=== PATIENT | female | born 1985 | race Caucasian/White ===

== ENCOUNTER 2019-09-18 14:57 | Inpatient (IN) | payer OTHER ==
[~2019-09-18] VITALS: Ht 167.6 cm; Wt 89.7 kg
[~2019-09-18 14:57] MED LIST: ALBU90OI INH; AMOX500 PO; AZIT250 PO; CEPH500 PO; CIPR500 PO; CLIN300 PO; CODACE30 PO; CRUTCH3 USE; CYCL10 PO; DIPH50 PO; FLUO10 PO; HYDACE5 PO; HYDACE5325 PO; HYDHCL25 PO; IBUP600 PO; IBUP800 PO; METERG.2 PO; METO10 PO; METPRE4DP PO; NAPR500 PO; Norco 5-325 Ta1 EACH PO; OXYACE5T PO; PENVK250 PO; PENVK500 PO; PHENA200 PO; PRED10 PO; PROACE100 PO; PROM25 PO; Percocet 5-3251 EACH PO; Prenatal Table1 EAC1 PO; Pyridium100 MG PO; Pyridium200 MG PO; RXHYDACE PO; RXOXYACE PO; SULTRIDS PO; Ultram50 MG PO; Veetids 500500 MG PO; Zofran Odt4 MG SL; [UNRECOGNIZED DRUG - OTHER]; [UNRECOGNIZED DRUG - REMARK]; birth control
[2019-09-18 16:00] LABS: BASOPHILS ABSOLUTE AUTO 0.04 K/mm3 (0.00-0.23); BASOPHILS PERCENT AUTO 1 % (0-2); EOSINOPHILS ABSOLUTE AUTO 0.13 K/mm3 (0.00-0.68); EOSINOPHILS PERCENT AUTO 2 % (0-6); Hematocrit 46.6 % (33.0-51.0); Hemoglobin 15.5 g/dL (11.5-16.0); IMMATURE GRAN ABSOLUTE AUTO 0.03 K/mm3 (0.00-0.10); IMMATURE GRAN PERCENT AUTO 0 % (0-1); LYMPHOCYTES ABSOLUTE AUTO 1.71 K/mm3 (0.84-5.20); LYMPHOCYTES PERCENT AUTO 24 % (21-46); MONOCYTES ABSOLUTE AUTO 0.57 K/mm3 (0.16-1.47); MONOCYTES PERCENT AUTO 8 % (4-13); Mean Corpuscular HGB 32.4 pg (26.0-34.0); Mean Corpuscular HGB Conc 33.3 g/dL (31.5-36.5); Mean Corpuscular Volume 97 fL (80-100); Mean Platelet Volume 8.7 fL (9.1-12.4); NEUTROPHILS ABSOLUTE AUTO 4.61 K/mm3 (1.96-9.15); NEUTROPHILS PERCENT AUTO 65 % (41-73); Platelet Count 178 K/mm3 (150-400); RDW Coefficient Variation 13.9 % (11.7-14.2); RDW Standard Deviation 49.4 fL (35.1-46.3); Red Blood Cell Count 4.79 M/mm3 (3.80-5.20); White Blood Cell Count 7.09 K/mm3 (4.00-11.30)
[2019-09-18 16:22] LABS: Alanine Aminotransfer (ALT/SGP 79 U/L (12-78); Albumin, Blood 3.7 g/dL (3.4-5.0); Albumin/Globulin Ratio 0.8 (0.8-1.8); Alk Phos 156 U/L (50-136); Anion Gap 8 mmol/L (6-16); Aspartate Aminotrans (AST/SGOT 125 U/L (12-37); Bilirubin, Total 0.9 mg/dL (0.1-1.0); Blood Urea Nitrogen 4 mg/dL (8-24); Bun/Creatinine Ratio 6.5 (12.0-20.0); CO2, Blood 26 mmol/L (21-32); Chloride, Blood 99 mmol/L (98-108); Creatinine, Blood 0.62 mg/dL (0.40-1.00); Ethanol (Alcohol), Blood, Med 11 mg/dL; Globulin, Blood 4.7 g/dL (2.2-4.0); Glomerular Filtration Rate >60 (60-); Glucose, Blood 107 mg/dL (70-99); Potassium, Blood 3.6 mmol/L (3.5-5.5); Sodium, Blood 133 mmol/L (136-145); Total Protein, Blood 8.4 g/dL (6.4-8.2)
[2019-09-18 16:28] LABS: Source, Urine Clean Catch
[2019-09-18 16:34] LABS: Bilirubin, Urine Neg (Neg); Blood, Urine 1+ (Neg); Glucose Qualitative, Urine Neg (Neg); Ketones, Urine 4+ (Neg); Leukocyte Esterase, Urine 2+ (Neg); Nitrite, Urine Pos (Neg); Protein, Urine 1+ (Neg); Urobilinogen, Urine 1+ (Normal)
[2019-09-18 16:40] LABS: Appearance, Urine Hazy (Clear); Color, Urine Yellow (P-Yellow)
[2019-09-18 16:43] LABS: Bacteria Many /hpf; Mucus Mod (0-Heavy); Red Blood Cells, Urine 0-2 /hpf (0-2); Squamous Epithelial Cells Many /hpf (Few)
[2019-09-18 16:46] LABS: U Amphetamine Screen Not Detected; U Barbituate Screen Not Detected; U Benzodiazapine Screen DETECTED; U Buprenorphine Screen Not Detected; U Cannabinoids Screen Not Detected; U Cocaine Screen Not Detected; U Methadone Screen Not Detected; U Methamphetamine Screen Not Detected; U Opiates Screen DETECTED; U Oxycodone Screen Not Detected; U Phencyclidine Screen Not Detected; U Propoxyphene Screen Not Detected
--- NOTE | 2019-09-18 21:14 | NUR ---
PHYSICIAN CONTACT. CALL PLACED TO HOSPITALIST, CIWA SCORE 9 AND HIGHER UPON RECHECK AFTER ATIVAN 1MG. PT STATES PAIN 9/10 ACROSS UPPER ABDOMEN. HOSPITALIST ADDED NEW ORDERS. WILL ADMINISTER DILAUDID TIMOTHY. CIWA SCORE UP TO 13 AT THIS TIME, WILL ADMINISTER ATIVAN ORDERED.
--- NOTE | 2019-09-18 23:08 | NUR ---
PT SCORED 11 ON CIWA SCALE. SHE IS CALMLY RESTING IN BED. REPORTS ABD PAIN IS RETURNING. HAS BEEN EXPERIENCING VISUAL HALLUCINATIONS EACH TIME SHE CLOSES HER EYES. REPORTS ITCHING ALL OVER BUT CAN TOLERATE THIS. APPEARS CALM AND SLIGHTLY SEDATED. ALERT AND ANSWERING QUESTIONS APPROPRIATELY.
[2019-09-19 04:29] LABS: BASOPHILS ABSOLUTE AUTO 0.04 K/mm3 (0.00-0.23); BASOPHILS PERCENT AUTO 1 % (0-2); EOSINOPHILS ABSOLUTE AUTO 0.13 K/mm3 (0.00-0.68); EOSINOPHILS PERCENT AUTO 2 % (0-6); Hematocrit 43.5 % (33.0-51.0); Hemoglobin 14.3 g/dL (11.5-16.0); IMMATURE GRAN ABSOLUTE AUTO 0.03 K/mm3 (0.00-0.10); IMMATURE GRAN PERCENT AUTO 0 % (0-1); LYMPHOCYTES ABSOLUTE AUTO 1.72 K/mm3 (0.84-5.20); LYMPHOCYTES PERCENT AUTO 22 % (21-46); MONOCYTES ABSOLUTE AUTO 0.72 K/mm3 (0.16-1.47); MONOCYTES PERCENT AUTO 9 % (4-13); Mean Corpuscular HGB 32.4 pg (26.0-34.0); Mean Corpuscular HGB Conc 32.9 g/dL (31.5-36.5); Mean Corpuscular Volume 98 fL (80-100); Mean Platelet Volume 8.9 fL (9.1-12.4); NEUTROPHILS ABSOLUTE AUTO 5.32 K/mm3 (1.96-9.15); NEUTROPHILS PERCENT AUTO 67 % (41-73); Platelet Count 142 K/mm3 (150-400); RDW Coefficient Variation 13.9 % (11.7-14.2); RDW Standard Deviation 50.5 fL (35.1-46.3); Red Blood Cell Count 4.42 M/mm3 (3.80-5.20); White Blood Cell Count 7.96 K/mm3 (4.00-11.30)
[2019-09-19 04:46] LABS: Anion Gap 6 mmol/L (6-16); Blood Urea Nitrogen 4 mg/dL (8-24); Bun/Creatinine Ratio 6.3 (12.0-20.0); CO2, Blood 29 mmol/L (21-32); Calcium, Blood 8.2 mg/dL (8.5-10.1); Chloride, Blood 100 mmol/L (98-108); Creatinine, Blood 0.64 mg/dL (0.40-1.00); Glomerular Filtration Rate >60 (60-); Glucose, Blood 114 mg/dL (70-99); Potassium, Blood 3.2 mmol/L (3.5-5.5); Sodium, Blood 135 mmol/L (136-145)
--- NOTE | 2019-09-19 04:52 | NUR ---
SHIFT SUMMARY: PT CAME IN A/0X3. PAIN 9/10 IN EPIGASTRIC REGION. CIWA SCORES HAVE BEEN BETWEEN 8 AND 13. RESPONDS TO ATIVAN. STATES PAIN DOES NOT GO AWAY WITH MEDS, RATHER SHE FEELS "DRUGGED". REPORTS PAIN GOES DOWN TO 6/10 WITH DILAUDID BUT IT CAUSES HER TO FEEL ITCHY IN ADDITION TO FEELING "DRUGGED". STATES CAN TOLERATE THE ITCHINESS IN RETURN FOR IMPROVED PAIN. UP WITH SBA TO HELP MANAGE CORDS. TELE ON- NSR. MOST RECENT DOSES OF DILAUDID AND ATIVAN CAUSED PT TO BECOME VERY SEDATED AND 02 SATS BEGAN RANGING FROM 86-90. REMAINED WITH PT AND PROVIDED STIMULATION TO KEEP SATS UP IN THE LOW 90S. PT IS CURRENTLY SITTING UP IN BED, VERY SLEEPY. RESPS REGULAR AND 02 SAT 90-94% ON RA. WILL RECOMMEND EITHER LOWER DOSE OF DILAUDID OR ALTERNATE PAIN MEDICATION WHEN PRNS ARE REQUESTED AGAIN.
--- NOTE | 2019-09-19 18:40 | NUR ---
SHIFT SUMMARY PATIENT ISPLEASANT. ALERT AND ORIENTED. INDEPENDENT. PAIN CONTROL.
[2019-09-20 04:03] LABS: BASOPHILS ABSOLUTE AUTO 0.03 K/mm3 (0.00-0.23); BASOPHILS PERCENT AUTO 0 % (0-2); EOSINOPHILS ABSOLUTE AUTO 0.04 K/mm3 (0.00-0.68); EOSINOPHILS PERCENT AUTO 0 % (0-6); Hematocrit 40.6 % (33.0-51.0); Hemoglobin 13.9 g/dL (11.5-16.0); IMMATURE GRAN ABSOLUTE AUTO 0.06 K/mm3 (0.00-0.10); IMMATURE GRAN PERCENT AUTO 1 % (0-1); LYMPHOCYTES ABSOLUTE AUTO 1.29 K/mm3 (0.84-5.20); LYMPHOCYTES PERCENT AUTO 11 % (21-46); MONOCYTES ABSOLUTE AUTO 0.85 K/mm3 (0.16-1.47); MONOCYTES PERCENT AUTO 7 % (4-13); Mean Corpuscular HGB 32.6 pg (26.0-34.0); Mean Corpuscular HGB Conc 34.2 g/dL (31.5-36.5); NEUTROPHILS ABSOLUTE AUTO 9.42 K/mm3 (1.96-9.15); NEUTROPHILS PERCENT AUTO 81 % (41-73); RDW Coefficient Variation 13.8 % (11.7-14.2); RDW Standard Deviation 47.5 fL (35.1-46.3); Red Blood Cell Count 4.27 M/mm3 (3.80-5.20); White Blood Cell Count 11.69 K/mm3 (4.00-11.30)
[2019-09-20 04:15] LABS: Mean Corpuscular Volume 95 fL (80-100); Mean Platelet Volume 9.2 fL (9.1-12.4); Platelet Count 119 K/mm3 (150-400)
[2019-09-20 04:18] LABS: Magnesium, Blood 2.2 mg/dL (1.6-2.4)
--- NOTE | 2019-09-20 04:33 | NUR ---
SHIFT SUMMARY: A/O X 3. MAKING NEEDS KNOWN. REPORTS PAIN IS BETTER MANAGED ON CURRENT PAIN MEDS. PAIN HAS RANGED BETWEEN 3-6/10 TONIGHT- LOCATED IN UPPER ABDOMEN. 02 96% ON RA. UP INDEPENDENTLY IN ROOM TO VOID IN RESTROOM- PT STATES SHE IS VOIDING ABOUT EVERY 2 HOURS SO HAS CONSEQUENTLY SLEPT POORLY. CIWA SCORE BETWEEN 5-8 TONIGHT. VOMITED X1 SMALL AMT OF CLEAR LIQUID PRIOR TO ZOFRAN ADMINISTRATION. NAUSEA RESOLVED WITH ANTIEMETIC. CURRENTLY SLEEPING. BED LOW, CALL LIGHT IN REACH
[2019-09-20 04:43] LABS: Anion Gap 6 mmol/L (6-16); Blood Urea Nitrogen <1 mg/dL (8-24); Bun/Creatinine Ratio Unable to Calculate (12.0-20.0); CO2, Blood 25 mmol/L (21-32); Calcium, Blood 8.6 mg/dL (8.5-10.1); Chloride, Blood 103 mmol/L (98-108); Creatinine, Blood 0.54 mg/dL (0.40-1.00); Glomerular Filtration Rate >60 (60-); Glucose, Blood 150 mg/dL (70-99); Potassium, Blood 4.2 mmol/L (3.5-5.5); Sodium, Blood 134 mmol/L (136-145)
--- NOTE | 2019-09-21 05:15 | NUR ---
SHIFT SUMMARY: A/OX4. UP INDEPENDENTLY IN ROOM TO BATHROOM. STATES UPPER ABDOMINAL PAIN RETURNS ABOUT 1 1/2 HRS AFTER RECEIVING ANALGESICS BUT IS TRYING TO GO LONG POSSIBLE BETWEEN ACCEPTING PRNS TO AVOID CLOUDED MENTATION IT CAUSES. VOIDING FREQUENTLY DURING THE NIGHT. SLEPT INTERMITTENTLY. MAKING NEEDS KNOWN. ATE ONE CONTAINER OF JELLO WITHOUT N/V. BECAME NAUSEAS AFTER DRINKING A CUP OF WATER TOO FAST BUT THIS SUBSIDED WITHOUT MEDICATION. BED LOW, CALL LIGHT IN REACH. VSS. 02 SAT 95% ON RA.
[2019-09-21] MEDS ORDERED: LEVFLO500 PO (12:11)
[2019-09-21] MEDS ORDERED: PANT40 PO (12:13)
--- NOTE | 2019-09-21 14:24 | NUR ---
PT DISCHARGED AT 1415. PT HAS BEEN AOX4 AND APPEARS TO BE RECOVERED FROM ALCOHOL WITHDRAWAL SYMPTOMS. PT TREATED FOR PAIN AND NAUSEA PER EMAR. PT WAS TO EAT HER REGULAR DIET FOR LUNCH PRIOR TO DISCHARGE. PT STATED SHE HAD A FEW BITES, BUT WAS STILL HAVING SOME PAIN. PT STATED SHE JUST WANTED TO LEAVE. DR RAMOS WAS NOTIFIED AND PT WAS THEN DISCHARGED. PT REFUSED RIDE TO DOOR. ALL PAPERS REVIEWED AND EDUCATIONAL MATERIAL SENT WITH PT.
== END 2019-09-21 14:21 | disposition home or self-care (01) | DRG 897 ==
LOC: ER 14:57 → MEDS 14:58
PROVIDERS: Physician Assistant; ADMIT Hospitalist
DX: F10.239 Alcohol dependence with withdrawal, unspecified (principal); N39.0 Urinary tract infection, site not specified; R56.9 Unspecified convulsions; K21.9 Gastro-esophageal reflux disease without esophagitis; E87.6 Hypokalemia; B95.7 Other staphylococcus as the cause of diseases classified elsewhere; F17.210 Nicotine dependence, cigarettes, uncomplicated
CPT/HCPCS: 36415; 80048; 80053; 81001; 81025; 83690; 83735; 85025; 87077; 87086; 87186; 90686; 94762; 96361; 96374; 96375; 96376; 99285-25; C9113; G0008; G0378; G0480; J0696; J1170; J1885; J1956; J2060; J2405; J2765; J3010; J3360; J3411; J3475; J3480; J7030; J7042

== ENCOUNTER 2019-12-06 07:55 | Observation (INO) | payer OTHER ==
[~2019-12-06] VITALS: Ht 167.6 cm; Wt 85.0 kg
[~2019-12-06 07:55] MED LIST changes: +LEVFLO500 PO; +PANT40 PO
[2019-12-06 08:21] LABS: Source, Urine Clean Catch
[2019-12-06 08:24] LABS: Bilirubin, Urine Neg (Neg); Blood, Urine Neg (Neg); Glucose Qualitative, Urine Neg (Neg); Ketones, Urine 3+ (Neg); Leukocyte Esterase, Urine 2+ (Neg); Nitrite, Urine Neg (Neg); Protein, Urine 1+ (Neg); Specific Gravity, Urine 1.025 (1.003-1.022); Urobilinogen, Urine 2+ (Normal)
[2019-12-06 08:29] LABS: Appearance, Urine Hazy (Clear); Color, Urine Yellow (P-Yellow)
[2019-12-06 08:31] LABS: Bacteria Many /hpf; Mucus Heavy (0-Heavy); Red Blood Cells, Urine 0-2 /hpf (0-2); Squamous Epithelial Cells Many /hpf (Few)
[2019-12-06 08:41] LABS: BASOPHILS ABSOLUTE AUTO 0.11 K/mm3 (0.00-0.23); BASOPHILS PERCENT AUTO 1 % (0-2); EOSINOPHILS ABSOLUTE AUTO 0.14 K/mm3 (0.00-0.68); EOSINOPHILS PERCENT AUTO 2 % (0-6); Hematocrit 42.7 % (33.0-51.0); Hemoglobin 14.3 g/dL (11.5-16.0); IMMATURE GRAN ABSOLUTE AUTO 0.02 K/mm3 (0.00-0.10); IMMATURE GRAN PERCENT AUTO 0 % (0-1); LYMPHOCYTES ABSOLUTE AUTO 3.52 K/mm3 (0.84-5.20); LYMPHOCYTES PERCENT AUTO 42 % (21-46); MONOCYTES ABSOLUTE AUTO 0.48 K/mm3 (0.16-1.47); MONOCYTES PERCENT AUTO 6 % (4-13); Mean Corpuscular HGB 32.1 pg (26.0-34.0); Mean Corpuscular HGB Conc 33.5 g/dL (31.5-36.5); Mean Corpuscular Volume 96 fL (80-100); Mean Platelet Volume 9.3 fL (9.1-12.4); NEUTROPHILS ABSOLUTE AUTO 4.05 K/mm3 (1.96-9.15); NEUTROPHILS PERCENT AUTO 49 % (41-73); Platelet Count 368 K/mm3 (150-400); RDW Coefficient Variation 12.5 % (11.7-14.2); Red Blood Cell Count 4.45 M/mm3 (3.80-5.20); White Blood Cell Count 8.32 K/mm3 (4.00-11.30)
[2019-12-06 08:58] LABS: Alanine Aminotransfer (ALT/SGP 131 U/L (12-78); Albumin, Blood 3.7 g/dL (3.4-5.0); Albumin/Globulin Ratio 0.8 (0.8-1.8); Alk Phos 125 U/L (50-136); Anion Gap 10 mmol/L (6-16); Aspartate Aminotrans (AST/SGOT 177 U/L (12-37); Bilirubin, Total 0.8 mg/dL (0.1-1.0); Blood Urea Nitrogen 6 mg/dL (8-24); Bun/Creatinine Ratio 9.6 (12.0-20.0); CO2, Blood 24 mmol/L (21-32); Calcium, Blood 8.8 mg/dL (8.5-10.1); Chloride, Blood 105 mmol/L (98-108); Creatinine, Blood 0.63 mg/dL (0.40-1.00); Globulin, Blood 4.4 g/dL (2.2-4.0); Glomerular Filtration Rate >60 (60-); Glucose, Blood 89 mg/dL (70-99); Potassium, Blood 3.5 mmol/L (3.5-5.5); Sodium, Blood 139 mmol/L (136-145); Total Protein, Blood 8.1 g/dL (6.4-8.2)
[2019-12-06] MEDS ORDERED: ONDA4ODT SL (14:08)
--- NOTE | 2019-12-06 18:01 | NUR ---
SHIFT SUMMARY PT ALERT AND ORIENTED TO SELF, SITUATION, AND FOLLOWING DIRECTION. PT UNABLE TO STATE CORRECT DATE OR TIME. VS STABLE. HR NSR. PT COMPLAINS OF POUNDING HEADACHE AND NAUSEA. PT BEING TREATED WITH CIWA PROTOCOL. SEE CIWA ASSESSMENTS. WILL CONTINUE TO MONITOR CLOSELY. CALL LIGHT IN REACH. PT CALLING APPROPRIATELY.
--- NOTE | 2019-12-07 02:29 | NUR ---
ASSUMED CARE AT 1900. ALLOWED TO SLEEP UNTIL 2300, PT AWAKENS SPONTANEOUSLY. REPORTS ANXIOUS AND VERY SHAKEY. VERY NAUSEATED AND VERY HUNGRY AND SHE WILL TRY FOOD AFTER ZOFRAN. CIWA 15 NOW LIBRIUM AND ATIVAN GIVEN. PARTIAL SANDWICH GIVEN AND TOLERATED W/O VOMITING. CALMING EFFECT W/ MEDS GIVEN .NO FURTHER MEDS REQUESTED. WILL CHECK FREQUENTLY FOR ADVANCING CIWA
[2019-12-07 03:40] LABS: Alanine Aminotransfer (ALT/SGP 84 U/L (12-78); Albumin/Globulin Ratio 0.9 (0.8-1.8); Alk Phos 101 U/L (50-136); Anion Gap 7 mmol/L (6-16); Aspartate Aminotrans (AST/SGOT 98 U/L (12-37); Bilirubin, Total 1.4 mg/dL (0.1-1.0); Blood Urea Nitrogen 4 mg/dL (8-24); Bun/Creatinine Ratio 6.3 (12.0-20.0); CO2, Blood 26 mmol/L (21-32); Calcium, Blood 8.3 mg/dL (8.5-10.1); Chloride, Blood 106 mmol/L (98-108); Creatinine, Blood 0.63 mg/dL (0.40-1.00); Globulin, Blood 3.4 g/dL (2.2-4.0); Glomerular Filtration Rate >60 (60-); Glucose, Blood 99 mg/dL (70-99); Potassium, Blood 3.6 mmol/L (3.5-5.5); Sodium, Blood 139 mmol/L (136-145); Total Protein, Blood 6.4 g/dL (6.4-8.2)
--- NOTE | 2019-12-07 06:00 | NUR ---
VERY MINIMAL MEDS TO KEEP CIWA LESS THAN 15 AND SUCCESSFUL IN CALMING MEASURES DENIES NAUSEA AND ABLE TO EAT 2 SANDWICHES. DOZING ON AND OFF.
--- NOTE | 2019-12-07 18:39 | NUR ---
SHIFT SUMMARY PT ALERT AND ORIENTED TO SELF, SITUATION, FOLLOWING DIRECTIONS. VS STABLE. PT COMPLAINS OF HEADACHE THROUGHOUT SHIFT. PT MEDICATED WITH ONE TIME DOSE OF IBUPROFEN. PT MEDICAED PER CIWA PROTOCOL THROUGHOUT SHIFT. PT TOLERATING PO INTAKE. WILL CONTINUE TO MONITOR CLOSELY AND REPORT TO ONCOMING RN. CALL LIGHT IN REACH.
--- NOTE | 2019-12-07 22:30 | NUR ---
PATIENT LEFT UNIT WITH PACKAGE DELIVERY DRIVER TO ER PATIENT HAD A FAMILY MEMBER IN ER - PATIENT TAKEN TO ER BY DOMINGO WAHL RN. PATIENT IN NO ACUTE DISTRESS - TOLERATED MOVING VERY WELL. PENNIE BENDER.
--- NOTE | 2019-12-07 23:37 | NUR ---
0000 RN NOTE PATIENT SLEEPING IN BED. NO ACUTE CHANGES. VSS. WILL CONTINUE TO MONITOR.
[2019-12-08 04:10] LABS: Alanine Aminotransfer (ALT/SGP 76 U/L (12-78); Albumin, Blood 2.8 g/dL (3.4-5.0); Albumin/Globulin Ratio 0.8 (0.8-1.8); Alk Phos 115 U/L (50-136); Anion Gap 5 mmol/L (6-16); Aspartate Aminotrans (AST/SGOT 87 U/L (12-37); Bilirubin, Total 0.5 mg/dL (0.1-1.0); Blood Urea Nitrogen 4 mg/dL (8-24); Bun/Creatinine Ratio 6.4 (12.0-20.0); CO2, Blood 26 mmol/L (21-32); Calcium, Blood 8.5 mg/dL (8.5-10.1); Chloride, Blood 110 mmol/L (98-108); Creatinine, Blood 0.63 mg/dL (0.40-1.00); Globulin, Blood 3.5 g/dL (2.2-4.0); Glomerular Filtration Rate >60 (60-); Glucose, Blood 106 mg/dL (70-99); Potassium, Blood 3.7 mmol/L (3.5-5.5); Sodium, Blood 141 mmol/L (136-145); Total Protein, Blood 6.3 g/dL (6.4-8.2)
[2019-12-08] MEDS ORDERED: CHLO10 PO (08:29)
--- NOTE | 2019-12-08 09:00 | NUR ---
UPDATE PT ALERT AND ORIENTED. VS STABLE. HR NSR. BP STABLE. PT DENIES ANY PAIN AT THIS TIME. CIWA LESS THAN 8. DR. JACOBSEN IN WITH PLANS FOR DISCHARGE TODAY IF CIWA REMAINS LESS THAN 10. PLAN FOR DISCHARGE AT NOON. WILL CONTINUE TO MONITOR.
--- NOTE | 2019-12-08 11:45 | NUR ---
UPDATE CIWA REMAINS BELOW 10. PT REPORTS FEELING "MUCH BETTER". DISCHARGE INSTRUCTIONS PROVIDED. PT EDUCATED ON NEW MEDICATIONS. PT GIVEN SCRIPT. PT TAKEN OUT BY WHEELCHAIR.
== END 2019-12-08 11:47 | disposition home or self-care (01) ==
LOC: ER 07:55 → PCU 10:25 → ER 10:25 → PCU 10:25
PROVIDERS: Physician Assistant; ADMIT Internal Medicine
DX: F10.231 Alcohol dependence with withdrawal delirium (principal); G40.509 Epileptic seizures related to external causes, not intractable, without status epilepticus; R82.90 Unspecified abnormal findings in urine; F17.200 Nicotine dependence, unspecified, uncomplicated
CPT/HCPCS: 36415; 80053; 81001; 83690; 85025; 87086; 94762; 96361; 96365; 96366; 96375; 96376; 99285-25; A9270-GY; G0378; G0480; J2060; J2405; J3411; J3475; J7030; J7042

== ENCOUNTER 2020-01-06 22:12 | Inpatient (IN) | payer OTHER ==
[~2020-01-06] VITALS: Ht 167.6 cm; Wt 83.5 kg
[~2020-01-06 22:12] MED LIST changes: +CHLO10 PO; +ONDA4ODT SL
[2020-01-07 01:51] LABS: BASOPHILS ABSOLUTE AUTO 0.06 K/mm3 (0.00-0.23); BASOPHILS PERCENT AUTO 1 % (0-2); EOSINOPHILS ABSOLUTE AUTO 0.07 K/mm3 (0.00-0.68); EOSINOPHILS PERCENT AUTO 1 % (0-6); Hemoglobin 14.3 g/dL (11.5-16.0); IMMATURE GRAN ABSOLUTE AUTO 0.02 K/mm3 (0.00-0.10); IMMATURE GRAN PERCENT AUTO 0 % (0-1); LYMPHOCYTES ABSOLUTE AUTO 3.02 K/mm3 (0.84-5.20); LYMPHOCYTES PERCENT AUTO 44 % (21-46); MONOCYTES ABSOLUTE AUTO 0.44 K/mm3 (0.16-1.47); MONOCYTES PERCENT AUTO 6 % (4-13); Mean Corpuscular HGB 32.4 pg (26.0-34.0); Mean Corpuscular Volume 95 fL (80-100); Mean Platelet Volume 9.9 fL (9.1-12.4); NEUTROPHILS ABSOLUTE AUTO 3.29 K/mm3 (1.96-9.15); NEUTROPHILS PERCENT AUTO 48 % (41-73); Platelet Count 164 K/mm3 (150-400); RDW Coefficient Variation 14.2 % (11.7-14.2); RDW Standard Deviation 49.4 fL (35.1-46.3); Red Blood Cell Count 4.42 M/mm3 (3.80-5.20)
[2020-01-07 01:59] LABS: Alanine Aminotransfer (ALT/SGP 162 U/L (12-78); Albumin, Blood 3.4 g/dL (3.4-5.0); Albumin/Globulin Ratio 0.8 (0.8-1.8); Alk Phos 159 U/L (50-136); Anion Gap 11 mmol/L (6-16); Aspartate Aminotrans (AST/SGOT 310 U/L (12-37); Bilirubin, Total 0.9 mg/dL (0.1-1.0); Blood Urea Nitrogen 6 mg/dL (8-24); Bun/Creatinine Ratio 11.9 (12.0-20.0); CO2, Blood 24 mmol/L (21-32); Calcium, Blood 8.7 mg/dL (8.5-10.1); Chloride, Blood 105 mmol/L (98-108); Ethanol (Alcohol), Blood, Med 76 mg/dL; Globulin, Blood 4.2 g/dL (2.2-4.0); Glomerular Filtration Rate >60 (60-); Glucose, Blood 85 mg/dL (70-99); Potassium, Blood 3.5 mmol/L (3.5-5.5); Sodium, Blood 140 mmol/L (136-145); Total Protein, Blood 7.6 g/dL (6.4-8.2)
--- NOTE | 2020-01-07 08:00 | NUR ---
PT ARRIVAL: PT ARRIVED VIA ED GURNEY. PT ABLE TO TRANSFER WITH STEADY GAIT TO THE BED. ALERT AND ORIENTED X3. PT IS VISUALLY TREMULOUS IN THE UE'S BILATERALLY. PT ANXIOUS/RESTLESS BUT COOPERATIVE WITH CARE. PT IS TEARFUL AT TIMES DURING ASSESSMENT. PT REPORTS HEADACHE PAIN 7-8/10 AND STATES, "I THINK I MAY HAVE PANCREATITIS, BECAUSE I'VE HAD IT BEFORE AND IT FEELS LIKE THAT, BUT THEY TELL ME, MY LIPASE IS NORMAL. PT REPORTS SHE DOES WANT TO STOP DRINKING AND HAS ATTEMPTED TO "CUT BACK" ON HER OWN AND HAD A SEIZURE AT HOME AND FEEL. PT DENIES HITTING HEAD, THAT SHE IS AWARE OF BUT C/O OF LOWER BACK PAIN/RT KNEE PAIN WITH OBSERVABLE SMALL AREA OF ECCHYMOSIS TO RT KNEE. PT STATES, "I BRUISE EASILY. OH, AND I DON'T WANT THOSE HEPARIN SHOTS." LUNGS ARE CLEAR T/O BILATERALLY. SATS >90% ON RA. HR REGULAR, SR-70'S RANGE. TRACE ANKLE/FOOT EDEMA BILATERALLY. NS @ 200ML/HR. ABD SOFT/ROUND/TENDER IN THE LUQ. BT'S HYPOACTIVE X4. PT REPORTS RECENT POOR APPETITE. MILD-MODERATE NAUSEA. PT VOIDING CONCENTRATED JEROD COLORED PER TOILETE.
--- NOTE | 2020-01-07 08:30 | NUR ---
CALLED DR YUN TO INFORM HIM PT ARRIVED TO UNIT. ALSO, INQUIRED ABOUT DOING URINE TEST. URINE SENT TO THE LAB FOR THIS. DICUSSED HEADACHE PAIN UNRELIEVED WITH TYLENOL AND ABD PAIN. DR YUN TO BE IN TO ASSESS PT.
--- NOTE | 2020-01-07 08:45 | NUR ---
PT MEDICATED: MEDICATED WITH ATIVAN/LIBRIUM PER ORDERS. CURRENT CIWA- 24. ALSO, MEDICATED WITH ZOFRAN FOR CONTINUED NAUSEA.
[2020-01-07 08:51] LABS: Source, Urine Clean Catch
[2020-01-07 09:05] LABS: Bilirubin, Urine Neg (Neg); Blood, Urine Neg (Neg); Glucose Qualitative, Urine Neg (Neg); Ketones, Urine 1+ (Neg); Leukocyte Esterase, Urine 1+ (Neg); Nitrite, Urine Neg (Neg); Protein, Urine Neg (Neg); Specific Gravity, Urine 1.015 (1.003-1.022); Urobilinogen, Urine 2+ (Normal)
[2020-01-07 09:20] LABS: Appearance, Urine Hazy (Clear); Color, Urine Yellow (P-Yellow)
[2020-01-07 09:21] LABS: Bacteria Few /hpf; Hyaline Casts 0-2 /lpf (0-2); Mucus Mod (0-Heavy); Red Blood Cells, Urine Not Seen /hpf (0-2); Squamous Epithelial Cells Mod /hpf (Few)
--- NOTE | 2020-01-07 11:20 | NUR ---
PT UPDATE: PT RESTING WHEN UNDISTURBED. PT AWAKENS EASILY TO VERBAL STIMULI. ANSWERS QUESTIONS APPROPRIATELY, HOWEVER, POOR RETENTION OF PRIOR CONVERSATIONS. PT REPORTS CONTINUED ANXIETY/RESTLESSNESS/ITCHING/HEADACHE PAIN AND LUQ PAIN, THAT PT STATES, "FEELS LIKE PANCREATITIS. PAIN 06/03, PT MEDICATED WITH OXYCODONE FOR PAIN AND LIBRIUM FOR ETOH W/D.
--- NOTE | 2020-01-07 11:29 | NUR ---
SUICIDE ASSESSMENT: PT IS NEGATIVE FOR [place] SUICIDE SCALE. DENIES ANY ACTIVE THOUGHTS/PLANS OF SI.
--- NOTE | 2020-01-07 13:00 | NUR ---
PT UPDATE: PT RESTING QUIETLY WHEN THIS RN ROUNDED. CALL LIGHT WITHIN REACH. LUNCH TRAY REMAINS AT BEDSIDE.
--- NOTE | 2020-01-07 14:37 | NUR ---
PT UPDATE: PT WITH INCREASING ANXIETY/IRRITABILITY/VISUAL HALLUCINATIONS. PT STATES, "I FEEL DIZZY" AND "EVERYTHING LOOKS WAVY." VS REMAIN STABLE. CIWA SCORE AT THIS TIME-30. MEDICATED WITH LIBRIUM 25MG PO, AND ATIVAN 2MG IVP. PT REPORTS SHE, "JUST WANTS TO SLEEP THIS OFF."
--- NOTE | 2020-01-07 17:50 | NUR ---
SHIFT SUMMARY: PT DID WELL T/O THE SHIFT WITH THE USE OF ATIVAN IV AND LIBRIUM PO. PT DOES CONTINUE TO HAVE ACTIVE WITHDRAWL SYMPTOMS, CIWA RANGING 10-30. PT AT TIMES IS SLIGHLTY DIAPHORETIC, UE'S TREMULOUS, C/O CONTINUOUS HEADACHE PAIN DESPITE TYLENOL/OXYCODONE PO, PT REPORTS VISION IS "WAVY" AND LATER THIS SHIFT REPORTS FEELING DIZZY, WHILE LAYING IN BED. VS HAVE REMAINED STABLE T/O SHIFT. LUNGS ARE CLEAR T/O BILATERALLY. SP02 SATS >90% ON RA. HR REGULAR, SR-70-80'S RANGE. ABD SOFT/ROUND/NON-TENDER. AT TIMES PT C/O NAUSEA, WHICH WAS RELIEVED WITH ZOFRAN IVP. PT HAS HAD A GOOD APPETITE T/O SHIFT. PT OOB TO TOILET TO VOID. URINE SCREEN TODAY, NEGATIVE.
--- NOTE | 2020-01-07 19:24 | NUR ---
ASSESSMENT/ASSUMED CARE PT LYING IN BED WITH EYES CLOSED. AWAKENS TO VERBAL. MOVING SELF AROUND IN BED. C/O LUQ ABD PAIN 06/03 AND HEADACHE 04/03. MED WITH OCYCODONE. CIWA 18 MED WITH LIBRIUM 50 MG. LUNGS CLEAR ON ROOMAIR. RESP EVEN AND NONLABORED. HEART RATE REGULAR, DENIES CHEST PAIN OR PRESSURE. DENIES SOB OR COUGH. BT+ ABD TENDER TO PALP. PT STATES," A LITTLE NAUSEA DUE TO THE PAIN IN MY STOMACH". REFUSING ZOFRAN. IV 20G TO RIGHT INNER WRIST SALINE LOCKED, FLUSHED WITHOUT DIFFICULTY. IV 20G TO LEFT FOREARM SALINE LOCKED, FLUSHED WITHOUT DIFFICULTY. PT UP AD GLIBERTO TO BATHROOM. GAIT STEADY.
--- NOTE | 2020-01-07 19:27 | NUR ---
REPORTED OFF TO EZE DE LA CRUZ WHOM IS NOW ASSUMING CARE OF THIS PT.
--- NOTE | 2020-01-07 22:09 | NUR ---
CIWA 20, PT MED WITH ATIVAN 2MG AND ZOFRAN.
--- NOTE | 2020-01-08 02:52 | NUR ---
CIWA PT AWAKE UP TO BATHROOM, THAN BACK TO BED. CIWA 19 PT MED WITH LIBRUIM AND OXYCODONE FOR HEADACHE. NEW IV 20G PLACED TO LEFT FOREARM AND LABS DRAWN.
[2020-01-08 02:57] LABS: BASOPHILS ABSOLUTE AUTO 0.04 K/mm3 (0.00-0.23); BASOPHILS PERCENT AUTO 1 % (0-2); EOSINOPHILS ABSOLUTE AUTO 0.12 K/mm3 (0.00-0.68); EOSINOPHILS PERCENT AUTO 2 % (0-6); Hematocrit 41.1 % (33.0-51.0); Hemoglobin 13.6 g/dL (11.5-16.0); IMMATURE GRAN ABSOLUTE AUTO 0.02 K/mm3 (0.00-0.10); IMMATURE GRAN PERCENT AUTO 0 % (0-1); LYMPHOCYTES ABSOLUTE AUTO 2.34 K/mm3 (0.84-5.20); LYMPHOCYTES PERCENT AUTO 41 % (21-46); MONOCYTES ABSOLUTE AUTO 0.43 K/mm3 (0.16-1.47); MONOCYTES PERCENT AUTO 8 % (4-13); Mean Corpuscular HGB 32.2 pg (26.0-34.0); Mean Corpuscular HGB Conc 33.1 g/dL (31.5-36.5); Mean Corpuscular Volume 97 fL (80-100); Mean Platelet Volume 9.9 fL (9.1-12.4); NEUTROPHILS ABSOLUTE AUTO 2.71 K/mm3 (1.96-9.15); NEUTROPHILS PERCENT AUTO 48 % (41-73); Platelet Count 144 K/mm3 (150-400); RDW Coefficient Variation 14.2 % (11.7-14.2); RDW Standard Deviation 51.2 fL (35.1-46.3); Red Blood Cell Count 4.22 M/mm3 (3.80-5.20); White Blood Cell Count 5.66 K/mm3 (4.00-11.30)
[2020-01-08 03:12] LABS: Anion Gap 9 mmol/L (6-16); Blood Urea Nitrogen 6 mg/dL (8-24); Bun/Creatinine Ratio 10.7 (12.0-20.0); CO2, Blood 26 mmol/L (21-32); Calcium, Blood 8.7 mg/dL (8.5-10.1); Chloride, Blood 106 mmol/L (98-108); Creatinine, Blood 0.56 mg/dL (0.40-1.00); Glomerular Filtration Rate >60 (60-); Glucose, Blood 108 mg/dL (70-99); Potassium, Blood 3.7 mmol/L (3.5-5.5); Sodium, Blood 141 mmol/L (136-145)
--- NOTE | 2020-01-08 05:21 | NUR ---
SHIFT SUMMARY PT RESTING QUIETLY AT THIS TIME. MED WITH LIBRIUM DURING THE NIGHT FOR CIWA 13-20. MED WITH OXYCODONE FOR HEADACHE AND LUQ ABD PAIN. PT UP AD GILBERTO IN ROOM. HEART RATE REGULAR. PT REQUESTING AND OPEN TO RECEIVING MORE HELP TO QUIT DRINKING. PT STATED,"I DIDN'T KNOW IF I WAS GOING TO BED ADMITTED SO I BROUGHT ALONG VODKA WITH ME. PLEASE DUMP IT OUT FOR ME. MY SISTER IS GOING TO MY HOUSE AND GETTING RID OF ALL THE ALCOHOL AT MY HOUSE". REPORT TO ON COMING NURSE
--- NOTE | 2020-01-08 08:00 | NUR ---
INITIAL ASSESSMENT PATIENT RESTING QUIETLY IN BED UPON ENTERING ROOM. PATIENT ALERT AND ORIENTED X 4. PATIENT HAS FLAT AFFECT AND STATES SHE "FEELS VERY ANXIOUS". CIWA SCORE OF 13. PATIENT AFEBRILE. NO COMPLAINTS OF PAIN AT THIS TIME. PATIENT SATTING 90% AND GREATER ON RA. LUNGS CLEAR THROUGHOUT. PATIENT IN SR, HR 60S TO 90S. BP STABLE. BP APPEARS SOFT WHEN SIDE LYING. PATIENT REFUSING SCDS. PATIENT STATES NAUSEOUS ON AND OFF. LAST BM NOTED YESTERDAY. SCATTERED BRUISES NOTED TO BODY. IVS FLUSHED AND SALINE LOCKED. BED LOW, CALL LIGHT IN REACH. WILL CONTINUE TO MONITOR FREQUENTLY THROUGHOUT SHIFT.
--- NOTE | 2020-01-08 13:25 | NUR ---
PATIENT SLEEPING SOUNDLY UPON ENTERING ROOM. PATIENT AFEBRILE. PATIENT HAS NO COMPLAINTS OF PAIN. PATIENT STATES SHE HAS SLIGHT HEADACHE AND FEELS LIKE THE ROOM IS SPINNING WHEN OPENS EYES. CIWA SCORE OF 5. PATIENT REMAINS SATTING 90% AND GREATER ON RA. PATIENT IN SR, HR IN THE 60S. BP STABLE. NO OTHER ACUTE CHANGES TO NOTE ON AT THIS TIME. WILL CONTINUE TO MONITOR.
--- NOTE | 2020-01-08 14:07 | NUR ---
PT UPDATE: PT OOB TO VOID IN TOILET. DARK CONC. JEROD COLORED URINE. ENCOURAGED PT DRINK MORE PO FLUID. PROVIDED WITH FRESH ICE WATER. PT ANXIOUS/GAURDED. REPORTS MODERATE HEADACE, VISUAL DISTURBANCES, REPORTS HER "ENTIRE BACK ITCHES", NAUSEA THAT SLIGHTLY IMPROVED WITH FOOD INTAKE. PT MEDICATED WITH ATIVAN/LIBRIUM.
--- NOTE | 2020-01-08 16:34 | NUR ---
PATIENT SLEEPING QUIETLY UPON ENTERING ROOM. NO COMPLAINTS OF PAIN. AFEBRILE. VITALS REMAIN STABLE. CIWA OF ZERO. NO ACUTE CHANGES TO NOTE ON AT THIS TIME. WILL CONTINUE TO MONITOR.
--- NOTE | 2020-01-08 18:53 | NUR ---
SHIFT SUMMARY PATIENT REMAINED ALERT AND ORIENTED X 4, AFEBRILE. PATIENT CONTINUED TO HAVE FLAT AFFECT. CIWAS RANGED FROM 5 TO 13. PATIENT GIVEN PRN ATIVAN AND LIBRUIM BOTH TWICE DURING SHIFT. PATIENT REMAINED SATTING 90% AND GREATER ON RA. PATIENT REMAINED IN SR, HR 60S TO 90S. BP REMAINED STABLE. PATIENT COMPLAINED OF ON AND OFF NAUSEA BUT ONLY WANTED PRN ZOFRAN OT. PATIENT HAD POOR APPETITE THIS SHIFT BUT DID TRY TO EAT A LITTLE OF EACH MEAL. WNL. NO CHANGE TO SKIN. PATIENT REPOSITIONED SELF IN BED. IVS SALINE LOCKED. PATIENT HAS NO COMPLAINTS AT THIS TIME. BED LOW, CALL LIGHT IN REACH. REPORT WILL BE GIVEN TO ASSUMING LOCK INSTALLER NURSE SHORTLY.
--- NOTE | 2020-01-08 20:38 | NUR ---
ASSUMPTION: ASSUMED CARE AT APPROX 1900 AFTER BEDSIDE REPORT. PATIENT C/O 09/03 HEADACHE, CIWA PERFORMED WITH INITIAL VS, SCORE WAS 25, PATIENT MEDICATED (SEE EMAR) PER CIWA PROTOCOL AND MD ORDERS, VSS. PATIENT REASSESED 1 HOUR LATER AND CIWA STILL 18, SUPERVISOR [employer] JCAKIE NOTIFIED, PATIENT TO BE TRANSFERED TO PCU STATUS FROM MED STATUS AND NO TRANSFER TO MED THIS SHIFT. PATIENT IV'S PATENT, PATIENT MONITORED CLOSELY.
--- NOTE | 2020-01-08 21:18 | NUR ---
called several times for transfer report after reviewing regulatory and just told CIWA scores 18 to 20 so PT not being transferred to medical floor to my care. sign off chart. Per Sharon LOO and informed research greenhouse supervisor.
--- NOTE | 2020-01-08 23:42 | NUR ---
APPROX 2330, PATIENT STATES SHE WANTS TO LEAVE AMA D/T THE FACT THAT THE ATIVAN, LIBRIUM AND ROXICODONE ARE NOT WORKING ON HER HEADACHE. PATIENT STATES THEY JUST MAKE HER SLEEPY. PATIENT ALSO STATES SHE WANTS TO BE HOME FOR HER HUSBANDS YEARLY BIRTHDAY MEMORIAL AT '[employer]' TOMORROW (01/09). PATIENT THEN STATED THAT HER 'STUPID' GAVE HER A '20 DOLLAR BILL IN MY [employer] CARD KNOWING HIS BIRTHDAY IS THE DAY AFTER [place] AND I WILL SPEND IT ON HIM' (SHE IS TALKING ABOUT HER IN THE PRESENT AND PAST TENSE). PATIENT CIWA SCORE AT THIS TIME IS 23, PATIENT AGREED TO ATIVAN BUT STATES SHE WILL NOT TAKE THE LIBRIUM. VSS, MONITORING CLOSELY
[2020-01-09 03:55] LABS: Anion Gap 8 mmol/L (6-16); Blood Urea Nitrogen 7 mg/dL (8-24); Bun/Creatinine Ratio 11.1 (12.0-20.0); CO2, Blood 27 mmol/L (21-32); Calcium, Blood 8.9 mg/dL (8.5-10.1); Chloride, Blood 104 mmol/L (98-108); Creatinine, Blood 0.63 mg/dL (0.40-1.00); Glomerular Filtration Rate >60 (60-); Glucose, Blood 105 mg/dL (70-99); Magnesium, Blood 1.8 mg/dL (1.6-2.4); Potassium, Blood 3.4 mmol/L (3.5-5.5); Sodium, Blood 139 mmol/L (136-145)
--- NOTE | 2020-01-09 05:52 | NUR ---
SHIFT SUMMARY: PATIENT CIWA SCORES IMPROVED AFTER 2330 DOSE OF ATIVAN, VSS THROUGHOUT, NO MORE C/O AU SINCE 0000. PATIENT BED LOW AND LOCKED, CALL LIGHT WITHIN REACH, CARE ROUNDING FREQUENTLY, MONITORING CLOSELY.
--- NOTE | 2020-01-09 08:30 | NUR ---
INITIAL ASSESSMENT PATIENT ALERT AND ORIENTED X 4, AFEBRILE. PATIENT HAS FLAT AFFECT, ANXIOUS UPON ENTERING ROOM. PATIENT VERY SENSITIVE ABOUT IV BEING FLUSHED. PATIENT TEARFUL. PATIENT STATES SHE FEELS ANXIOUS. CIWA SCORE OF 13. PATIENT GIVEN PRN PAIN MEDICATION FOR COMPLAINT OF HEADACHE. PATIENT SBA IS FALL RISK. PATIENT AGREES TO CALL NURSE IF NEEDS TO GET OUT OF BED FOR TOILET AND NOT GET UP BY HERSELF FOR SAFETY REASONS. PATIENT SATTING 90% AND GREATER ON RA. LUNGS CLEAR THROUGHOUT. PATIENT IN SR, HR IN THE 80S. BP STABLE. PATIENT DENIES NAUSEA AT THIS TIME. SCATTERED BRUISES NOTED. PATIENT REPOSITIONING SELF IN BED. PATIENT RECEIVING 20 MM K PHOS THIS AM. BED LOW, CALL LIGHT IN REACH. WILL CONTINUE TO MONITOR PATIENT FREQUENTLY THROUGHOUT SHIFT.
--- NOTE | 2020-01-09 12:28 | NUR ---
PATIENT SLEEPING SOUNDLY UPON ENTERING ROOM. PATIENT AFEBRILE. PATIENT DENIES PAIN. PATIENT DENIES HEADACHE OR NAUSEA. PATIENT REMAINS SATTING 90% AND GREATER ON RA. PATIENT IN SR, HR IN THE 60S. BP STABLE. CIWA SCORE OF 2 AT THIS TIME. NO OTHER ACUTE CHANGES TO NOTE ON AT THIS TIME. PATIENT IS NOW SITTING UP ATTEMPTING TO EAT LUNCH. WILL CONTINUE TO MONITOR.
--- NOTE | 2020-01-09 15:52 | NUR ---
PATIENT STATES SHE IS GOING AMA. PATIENT STATES SHE HAS TO GO HOME TODAY BECAUSE IT IS HER 'S BIRTHDAY AND SHE NEEDS TO VISIT HIS CROSS. PATIENT ALERT AND ORIENTED. NURSE DISCUSSED HAZARDS OF LEAVING HOSPITAL DURING WITHDRAWALS. PATIENT STATED THAT SHE FULLY UNDERSTANDS AND THAT SHE HAS LIBRIUM AT HOME. PATIENT STATES HER SISTER IS GOING TO COME PICK HER UP. PATIENT DOES NOT HAVE MUSCLE TREMORS, PATIENT DENIES NAUSEA OR HEADACHE. DR. LOPEZ AND CHARGE NURSE INFORMED THAT PATIENT LEAVING AMA. PATIENT IS GETTING DRESSED AT THIS TIME.
--- NOTE | 2020-01-09 16:12 | NUR ---
SHIFT SUMMARY PATIENT REMAINED ALERT AND ORIENTED X 4. PATIENT CONTINUED TO HAVE FLAT AFFECT AND FEEL ANXIOUS AT TIMES. CIWAS RANGED FROM 2 TO 13. PATIENT MOSTLY NAPPED THROUGHOUT SHIFT. PATIENT REMAINED AFEBRILE. PATIENT HAD COMPLAINT OF HEADACHE OT DURING SHIFT AND RECEIVED PRN OXYCODONE FOR STATED THE PRN TYLENOL WAS TOO BIG FOR HER TO SWALLOW. PATIENT REMAINED SATTING 90% AND GREATER ON RA. PATIENT REMAINED IN SR, HR 60S TO 90S. BP REMAINED STABLE. NO BM THIS SHIFT. PATIENT HAD POOR APPETITE BUT TRIED TO EAT SOME AT EACH MEAL. WNL. NO CHANGE TO SKIN. PATIENT REPOSITIONING SELF IN BED. PATIENT RECEIVED 20 MM KPHOS REPLACEMENT THIS SHIFT. PATIENT REFUSED BED BATH. PATIENT DECIDED TO LEAVE AMA AFTER FAMILY VISITED BECAUSE "THEY MADE HER FEEL BAD FOR NOT VISITING HER 'S GRAVE ON HIS BIRTHDAY". PATIENT INSTRUCTED ON DANGERS OF LEAVING AMA DURING ALCOHOL WITHDRAWALS AND PATIENT UNDERSTOOD. PATIENT'S SISTER CAME TO PICK HER UP AND THEY JUST LEFT UNIT.
== END 2020-01-09 16:15 | disposition left against medical advice (07) | DRG 894 ==
LOC: ER 22:12 → ERHOLD 01-07 02:33 → ICUW 01-07 02:33
PROVIDERS: Emergency Medicine; Internal Medicine; ADMIT Hospitalist
DX: F10.239 Alcohol dependence with withdrawal, unspecified (principal); F17.210 Nicotine dependence, cigarettes, uncomplicated; D69.6 Thrombocytopenia, unspecified; E87.6 Hypokalemia; Y90.3 Blood alcohol level of 60-79 mg/100 ml
CPT/HCPCS: 36415; 80048; 80053; 81001; 81025; 83690; 83735; 85025; 96361; 96374; 99285-25; A9270; G0480; J2060; J2405; J7030; J7050; J7060

== ENCOUNTER 2020-02-04 19:15 | Inpatient (IN) | payer OTHER ==
[~2020-02-04] VITALS: Ht 170.2 cm; Wt 80.0 kg
[~2020-02-04 19:15] MED LIST changes: -ONDA4ODT SL
[2020-02-04 20:24] LABS: BASOPHILS ABSOLUTE AUTO 0.06 K/mm3 (0.00-0.23); BASOPHILS PERCENT AUTO 1 % (0-2); EOSINOPHILS ABSOLUTE AUTO 0.12 K/mm3 (0.00-0.68); EOSINOPHILS PERCENT AUTO 2 % (0-6); Hematocrit 42.2 % (33.0-51.0); Hemoglobin 14.6 g/dL (11.5-16.0); IMMATURE GRAN ABSOLUTE AUTO 0.02 K/mm3 (0.00-0.10); IMMATURE GRAN PERCENT AUTO 0 % (0-1); LYMPHOCYTES ABSOLUTE AUTO 1.56 K/mm3 (0.84-5.20); LYMPHOCYTES PERCENT AUTO 22 % (21-46); MONOCYTES ABSOLUTE AUTO 0.46 K/mm3 (0.16-1.47); MONOCYTES PERCENT AUTO 6 % (4-13); Mean Corpuscular HGB Conc 34.6 g/dL (31.5-36.5); Mean Corpuscular Volume 96 fL (80-100); Mean Platelet Volume 9.9 fL (9.1-12.4); NEUTROPHILS ABSOLUTE AUTO 5.04 K/mm3 (1.96-9.15); NEUTROPHILS PERCENT AUTO 69 % (41-73); Platelet Count 151 K/mm3 (150-400); RDW Coefficient Variation 14.2 % (11.7-14.2); RDW Standard Deviation 50.6 fL (35.1-46.3); Red Blood Cell Count 4.42 M/mm3 (3.80-5.20); White Blood Cell Count 7.26 K/mm3 (4.00-11.30)
[2020-02-04 20:27] LABS: Source, Urine Clean Catch
[2020-02-04 20:30] LABS: Blood, Urine 1+ (Neg); Glucose Qualitative, Urine Neg (Neg); Ketones, Urine 4+ (Neg); Leukocyte Esterase, Urine 3+ (Neg); Nitrite, Urine Neg (Neg); Protein, Urine 1+ (Neg); Specific Gravity, Urine 1.015 (1.003-1.022); Urobilinogen, Urine 2+ (Normal)
[2020-02-04 20:37] LABS: Appearance, Urine Hazy (Clear); Bilirubin, Urine 1+ (Neg); Color, Urine Amber (P-Yellow)
[2020-02-04 20:39] LABS: Amorphous Light (0-Heavy); Bacteria Many /hpf; Hyaline Casts 25-50 /lpf (0-2); Red Blood Cells, Urine 0-2 /hpf (0-2); Squamous Epithelial Cells Mod /hpf (Few); White Blood Cells, Urine TNTC /hpf (0-5)
[2020-02-04 20:42] LABS: Alanine Aminotransfer (ALT/SGP 188 U/L (12-78); Albumin/Globulin Ratio 0.8 (0.8-1.8); Alk Phos 189 U/L (50-136); Anion Gap 13 mmol/L (6-16); Aspartate Aminotrans (AST/SGOT 346 U/L (12-37); Blood Urea Nitrogen 5 mg/dL (8-24); Bun/Creatinine Ratio 9.9 (12.0-20.0); CO2, Blood 23 mmol/L (21-32); Calcium, Blood 9.3 mg/dL (8.5-10.1); Chloride, Blood 99 mmol/L (98-108); Creatinine, Blood 0.51 mg/dL (0.40-1.00); Ethanol (Alcohol), Blood, Med 86 mg/dL; Glomerular Filtration Rate >60 (60-); Glucose, Blood 91 mg/dL (70-99); Potassium, Blood 3.6 mmol/L (3.5-5.5); Sodium, Blood 135 mmol/L (136-145)
[2020-02-04 20:47] LABS: U Amphetamine Screen Not Detected; U Barbituate Screen Not Detected; U Benzodiazapine Screen DETECTED; U Buprenorphine Screen Not Detected; U Cannabinoids Screen Not Detected; U Cocaine Screen Not Detected; U Methadone Screen Not Detected; U Methamphetamine Screen Not Detected; U Opiates Screen Not Detected; U Oxycodone Screen Not Detected; U Phencyclidine Screen Not Detected; U Propoxyphene Screen Not Detected
[2020-02-04] MEDS ORDERED: ONDA4ODT SL (21:07)
--- NOTE | 2020-02-04 23:45 | NUR ---
ASSUMED CARE NOTE: ASSUMED CARE OF PERSON AT 2245, RECEVIED REPORT FROM MICHELLE LOO, PT ARRIVED TO UNIT VIA STRETCHER. PT TRANSFERED SELF TO UNIT BED. PT IS ALERT AND ORIENTEDX3, PT IS ABLE TO FOLLOW DIRECTIONS. PT IS ON RA WITH SPO2 @ 96%. VITALS STABLE. PT IN NSR, WITH HR @ 79, PT DENIES SOB/CP AT THIS TIME. AMDOMEN SOFT, BOWEL TONES HEARD IN ALL FOUR QUADRANTS. PT IS C/O LUQ PAIN, 07/04, PT DESCRIBED THE PAIN SHARP AND STABBING. CALLED DR. MILNER REGARDING PAIN, ORDERS GIVEN FOR PAIN MEDS. CIWA SCORE OF 8. WILL CONTINUE TO MONITOR PT T/O SHIFT, BED AT LOWEST LEVEL, CALL LIGHT WITHIN REACH, BED ALARM ON
--- NOTE | 2020-02-05 02:44 | NUR ---
UPDATE: CIWA HAVE BEEN 8 OR LESS SINCE ADMISSION. PT IS C/O LUQ PAIN, STATES THAT PAIN MEDS ARE NOT EFFECTIVE. PT STATING THAT SHE IS ANXIOUS AND WANTS SOMETHING TO "KNOCK HER OUT". PT HAS BEEN GIVEN LIBRIUM PER EMAR.
[2020-02-05 05:33] LABS: Alanine Aminotransfer (ALT/SGP 146 U/L (12-78); Albumin, Blood 3.6 g/dL (3.4-5.0); Albumin/Globulin Ratio 0.9 (0.8-1.8); Alk Phos 160 U/L (50-136); Anion Gap 8 mmol/L (6-16); Aspartate Aminotrans (AST/SGOT 255 U/L (12-37); Blood Urea Nitrogen 7 mg/dL (8-24); Bun/Creatinine Ratio 13.2 (12.0-20.0); CO2, Blood 27 mmol/L (21-32); Calcium, Blood 8.6 mg/dL (8.5-10.1); Chloride, Blood 99 mmol/L (98-108); Creatinine, Blood 0.53 mg/dL (0.40-1.00); Globulin, Blood 4.2 g/dL (2.2-4.0); Glomerular Filtration Rate >60 (60-); Glucose, Blood 92 mg/dL (70-99); Magnesium, Blood 2.2 mg/dL (1.6-2.4); Potassium, Blood 3.3 mmol/L (3.5-5.5); Sodium, Blood 134 mmol/L (136-145); Total Protein, Blood 7.8 g/dL (6.4-8.2)
--- NOTE | 2020-02-05 06:27 | NUR ---
SHIFT SUMMARY: SEE PREVIOUS NOTES. CIWA HAVE BEEN 8, PT CONTINUES TO C/O LUQ, PAIN MEDS GIVEN PER EMAR. PT HAS BEEN CRYING OUT, STATING " HOW CAN THEY JUST LEAVE ME LIKE THIS, THERE HAS TO BE SOMETHING WRONG" A FEW MOMENTS LATER PT IS ABLE TO CALM SELF DOWN AND IS ABLE TO DISTRACT SELF FROM PAIN BY USING PHONE, WATCHING TV, OR HAVING A ONE-ONE CONVERSTATION. PT [id number], PT WAS STEADY ON FEET AND WAS ABLE TO AMBULATE SELF W/O DIFFICULTY. PT REMAINS IN NSR WITH HR IN THE 80'S. ATIVAN GIVEN PER EMAR FOR ETOH WD AND ANXIETY. VITAL SIGNS STABLE. PT C/O NAUSEA THIS SHIFT, ZOFRAN GIVEN PER EMAR. NO SEZUIRE ACTIVITY NOTED THIS SHIFT. WILL CONTINUE TO MONITOR PT UNTIL REPORT IS GIVEN TO ONCOMING RN.
--- NOTE | 2020-02-05 09:20 | NUR ---
CARE ASSUMED CARE AND REPORT ASSUMED FROM BRISEIDA LOO. PT AWAKE AND ALERT. SHE IS OUT OF BED, ACTIVELY VOMITING OVER TOILET. DOSE OF ZOFRAN IVP GIVEN AND MD LOPEZ CONTACTED FOR FURTHER NAUSEA MEDICATION REQUEST. PHENERGAN 25 MG IVP GIVEN. PT NOW SLEEPING COMFORTABLY. HEATING PAD OVER ABDOMEN. MD LOPEZ AWARE OF EPIGASTRIC PAIN. VSS. AFEBRILE. NO TREMORS NOTED. WILL CONTINUE TO MONITOR. WILL ADMINISTER TYELNOL AND LIBRIUM WHEN VOMITING CONTROLLED.
--- NOTE | 2020-02-05 11:46 | NUR ---
REASSESSMENT PT NOW MEDICAL FLOOR STATUS; AWAITING BED. VOMITING IMPROVED AFTER PHENERGAN AND ZOFRAN. PT SLEEPING OFF/ON. VSS. PT BECOMES IMPULSIVE AND AGITATED SUDDENLY UPON AWAKENING. CONTINUALLY REMINDING PT TO SLOW DOWN AND BE AWARE OF HER IV LINES AND CORDS. MOANING CURRENTLY OF PAIN; TRAMADOL GIVEN FOR PAIN. POTASSIUM PHOSPHATE REPLACEMENT INFUSING. WILL CONTINUE TO MONITOR.
--- NOTE | 2020-02-05 12:36 | NUR ---
REPORT CALLED TO SAHARA ON MEDICAL FLOOR. WILL TRANSFER WHEN ROOM IS CLEAN.
--- NOTE | 2020-02-05 18:07 | NUR ---
SHIFT SUMMARY. 1315 PT TRANSFERED FROM ICU TO MEDICAL FLOOR VIA W/C. PT WITH C/O MID ABD PAIN AND NAUSEA WITHOUT EMESIS. PAIN AND NAUSEA MANAGED WITH CURENT ORDERS. LIBRIUM GIVEN ONCE FOR ELEVATED CIWA.
--- NOTE | 2020-02-06 00:33 | NUR ---
ANSWERING SERVICE CONTACTED REGARDING PT REPORTS OF NOT TOLERATING PO FOOD OR FLUID INTAKE. DR. RED ORDERED 1 ADDITIONAL 1000ML BAG OF NS TONIGHT.
--- NOTE | 2020-02-06 04:22 | NUR ---
SHIFT SUMMARY: VSS. AFEB. CIWA SCORE 7-9. PT REFUSED LIBRIUM D/T REPORTED N/V. ATIVAN ADMINISTERED ALCOHOL WITHDRAWAL SYMPTOMS X 1 W/ GOOD EFFECT. PHENERGAN HELPED NAUSEA SOME. CONT W/ EPIGASTRIC ABD PAIN. PRN ANALGESICS ADMINISTERED. PT STATES ANALGESICS HELP. UP INDEPENDENTLY TO BATHROOM. T/F STEADILY AND IS ABLE TO MANEUVER IV POLE. HAS SLEPT INTERMITTENTLY. NO ACUTE CHANGES. WILL CONT TO MONITOR.
[2020-02-06 06:13] LABS: Alanine Aminotransfer (ALT/SGP 103 U/L (12-78); Albumin, Blood 3.2 g/dL (3.4-5.0); Albumin/Globulin Ratio 0.7 (0.8-1.8); Alk Phos 141 U/L (50-136); Anion Gap 9 mmol/L (6-16); Aspartate Aminotrans (AST/SGOT 136 U/L (12-37); Bilirubin, Total 2.6 mg/dL (0.1-1.0); Blood Urea Nitrogen 4 mg/dL (8-24); CO2, Blood 24 mmol/L (21-32); Chloride, Blood 101 mmol/L (98-108); Globulin, Blood 4.3 g/dL (2.2-4.0); Glomerular Filtration Rate >60 (60-); Glucose, Blood 87 mg/dL (70-99); Potassium, Blood 3.3 mmol/L (3.5-5.5); Sodium, Blood 134 mmol/L (136-145); Total Protein, Blood 7.5 g/dL (6.4-8.2)
--- NOTE | 2020-02-06 17:18 | NUR ---
Shift Summary A/Ox4, patient slept most of the day. CIWA was 8, 7, 3. Medicated for CIWA 8 x 1, abdominal pain x 3 with good results. Tele: SR 90's and has been d/c. Unable to tolerate much PO intake due to complaints of increasing abdominal pain. Patient is now on Clear liquids, advance as tolerated. Independent to bathroom, no other concerns at this time.
--- NOTE | 2020-02-07 04:48 | NUR ---
SHIFT SUMMARY: A/OX4. CIWA 5,8, AND 2. PRIMARY COMPLAINT CAUSING INCREASED CIWA SCORE IS ITCHINESS. NO RASH VISIBLE. PT HAS SLEPT THROUGH MUCH OF THE NIGHT. ULTRAM ADMINISTERED X 2 FOR ABD AND BACK PAIN. PT STATES BACK PAIN DUE TO HOSPITAL MATTRESS. OFFERED MAALOX FOR ABD PAIN, PT REFUSED STATING SHE IS TOO NAUSEAUS TO DRINK THE THICK SOLUTION, HOWEVER CLARIFIED SHE IS NOT NAUSEAUS ENOUGH TO TAKE ANTIEMETICS. INDEPENDENT IN ROOM. PT STATES SHE IS HOLDING DOWN FLUIDS. NO VOMITING TONIGHT. WILL CONT TO MONITOR.
[2020-02-07 05:11] LABS: BASOPHILS ABSOLUTE AUTO 0.04 K/mm3 (0.00-0.23); BASOPHILS PERCENT AUTO 1 % (0-2); EOSINOPHILS ABSOLUTE AUTO 0.22 K/mm3 (0.00-0.68); EOSINOPHILS PERCENT AUTO 3 % (0-6); Hemoglobin 13.2 g/dL (11.5-16.0); IMMATURE GRAN ABSOLUTE AUTO 0.02 K/mm3 (0.00-0.10); IMMATURE GRAN PERCENT AUTO 0 % (0-1); LYMPHOCYTES ABSOLUTE AUTO 1.71 K/mm3 (0.84-5.20); LYMPHOCYTES PERCENT AUTO 24 % (21-46); MONOCYTES ABSOLUTE AUTO 0.61 K/mm3 (0.16-1.47); MONOCYTES PERCENT AUTO 8 % (4-13); Mean Corpuscular HGB 33.4 pg (26.0-34.0); Mean Corpuscular HGB Conc 33.8 g/dL (31.5-36.5); Mean Platelet Volume 10.4 fL (9.1-12.4); NEUTROPHILS ABSOLUTE AUTO 4.65 K/mm3 (1.96-9.15); NEUTROPHILS PERCENT AUTO 64 % (41-73); Platelet Count 125 K/mm3 (150-400); RDW Standard Deviation 51.5 fL (35.1-46.3); Red Blood Cell Count 3.95 M/mm3 (3.80-5.20); White Blood Cell Count 7.25 K/mm3 (4.00-11.30)
[2020-02-07 05:21] LABS: Mean Corpuscular Volume 99 fL (80-100)
[2020-02-07 05:27] LABS: Alanine Aminotransfer (ALT/SGP 110 U/L (12-78); Albumin, Blood 3.2 g/dL (3.4-5.0); Albumin/Globulin Ratio 0.7 (0.8-1.8); Alk Phos 148 U/L (50-136); Anion Gap 11 mmol/L (6-16); Aspartate Aminotrans (AST/SGOT 207 U/L (12-37); Blood Urea Nitrogen 8 mg/dL (8-24); Bun/Creatinine Ratio 15.7 (12.0-20.0); CO2, Blood 25 mmol/L (21-32); Calcium, Blood 8.8 mg/dL (8.5-10.1); Chloride, Blood 99 mmol/L (98-108); Creatinine, Blood 0.51 mg/dL (0.40-1.00); Globulin, Blood 4.3 g/dL (2.2-4.0); Glomerular Filtration Rate >60 (60-); Glucose, Blood 67 mg/dL (70-99); Potassium, Blood 3.6 mmol/L (3.5-5.5); Sodium, Blood 135 mmol/L (136-145); Total Protein, Blood 7.5 g/dL (6.4-8.2)
[2020-02-07] MEDS ORDERED: OMEP20ER PO (15:24)
[2020-02-07] MEDS ORDERED: CHLO25 PO (15:26)
--- NOTE | 2020-02-07 16:22 | NUR ---
Discharge Summary A/Ox4, patient discharging to home. Discharge instructions, medications, and education reviewed with patient. Patient has no PCP establish and is in the middle of moving to [place] in the next couple of weeks, post-hospital f/u referred to [facility] per patient request as this is the only place that will take her insurance. IV removed, WNL. Meds faxed to preferred pharmacy. Personal belongings sent home, patient refused w/c escort; instead, escorted self out via ambulation. Transportation is via personal vehicle. Discharge plan discussed with director of assessing Mary.
== END 2020-02-07 16:30 | disposition home or self-care (01) | DRG 897 ==
LOC: ER 19:15 → ICUW 22:40 → MEDS 02-05 13:05
PROVIDERS: Hospitalist; Internal Medicine; Physician Assistant; ADMIT Hospitalist
DX: F10.239 Alcohol dependence with withdrawal, unspecified (principal); E87.6 Hypokalemia; K70.10 Alcoholic hepatitis without ascites; D69.6 Thrombocytopenia, unspecified; K76.0 Fatty (change of) liver, not elsewhere classified; K29.20 Alcoholic gastritis without bleeding; K21.9 Gastro-esophageal reflux disease without esophagitis; F41.9 Anxiety disorder, unspecified; F17.210 Nicotine dependence, cigarettes, uncomplicated
CPT/HCPCS: 36415; 76705; 80053; 81001; 81025; 83690; 83735; 85025; 87077; 87086; 87186; 96365; 96375; 96376; 99285-25; A9270; G0480; J0696; J1885; J2060; J2405; J2550; J3411; J3475; J7030; J7042; J7060

== ENCOUNTER 2020-03-24 16:05 | Inpatient (IN) | payer OTHER ==
[~2020-03-24] VITALS: Ht 167.6 cm; Wt 76.3 kg
[~2020-03-24 16:05] MED LIST changes: +CHLO25 PO; +OMEP20ER PO; +ONDA4ODT SL
[2020-03-24 16:38] LABS: BASOPHILS ABSOLUTE AUTO 0.07 K/mm3 (0.00-0.23); BASOPHILS PERCENT AUTO 1 % (0-2); EOSINOPHILS ABSOLUTE AUTO 0.09 K/mm3 (0.00-0.68); EOSINOPHILS PERCENT AUTO 1 % (0-6); Hematocrit 38.8 % (33.0-51.0); Hemoglobin 13.4 g/dL (11.5-16.0); IMMATURE GRAN ABSOLUTE AUTO 0.07 K/mm3 (0.00-0.10); IMMATURE GRAN PERCENT AUTO 1 % (0-1); LYMPHOCYTES ABSOLUTE AUTO 2.09 K/mm3 (0.84-5.20); LYMPHOCYTES PERCENT AUTO 24 % (21-46); MONOCYTES ABSOLUTE AUTO 0.66 K/mm3 (0.16-1.47); MONOCYTES PERCENT AUTO 8 % (4-13); Mean Corpuscular HGB Conc 34.5 g/dL (31.5-36.5); Mean Corpuscular Volume 101 fL (80-100); Mean Platelet Volume 9.8 fL (9.1-12.4); NEUTROPHILS PERCENT AUTO 66 % (41-73); Platelet Count 264 K/mm3 (150-400); RDW Standard Deviation 55.5 fL (35.1-46.3); Red Blood Cell Count 3.83 M/mm3 (3.80-5.20); White Blood Cell Count 8.68 K/mm3 (4.00-11.30)
[2020-03-24] MEDS ORDERED: ONDA4 PO (16:47)
[2020-03-24 16:57] LABS: Alanine Aminotransfer (ALT/SGP 135 U/L (12-78); Albumin, Blood 3.5 g/dL (3.4-5.0); Albumin/Globulin Ratio 0.7 (0.8-1.8); Alk Phos 231 U/L (50-136); Anion Gap 16 mmol/L (6-16); Aspartate Aminotrans (AST/SGOT 356 U/L (12-37); Bilirubin, Total 3.9 mg/dL (0.1-1.0); Blood Urea Nitrogen 4 mg/dL (8-24); Bun/Creatinine Ratio 11.7 (12.0-20.0); CO2, Blood 22 mmol/L (21-32); Calcium, Blood 9.1 mg/dL (8.5-10.1); Chloride, Blood 91 mmol/L (98-108); Creatinine, Blood 0.34 mg/dL (0.40-1.00); Ethanol (Alcohol), Blood, Med 9 mg/dL; Globulin, Blood 5.1 g/dL (2.2-4.0); Glomerular Filtration Rate >60 (60-); Glucose, Blood 92 mg/dL (70-99); Sodium, Blood 129 mmol/L (136-145); Total Protein, Blood 8.6 g/dL (6.4-8.2)
[2020-03-24 17:10] LABS: Magnesium, Blood 2.1 mg/dL (1.6-2.4)
[2020-03-24 17:44] LABS: Beta-hydroxybutyrate 57.1 mg/dL (0.2-2.8)
--- NOTE | 2020-03-24 18:53 | NUR ---
INITIAL ASSESSMENT PATIENT ARRIVED TO UNIT FROM ER AT 1830. PATIENT ALERT AND ORIENTED EXCEPT TO MONTH. CIWA OF 11. PRN LIBRIUM GIVEN. PATIENT AFEBRILE. NO COMPLAINTS OF PAIN. PATIENT SATTING 90% AND GREATER ON RA. PATIENT IN SR, HR IN THE 90S. BP STABLE. PATIENT COMPLAINS OF NAUSEA. BANANA BAG INFUSING. BED LOW, CALL LIGHT IN REACH. PATIENT ORIENTED TO UNIT, ROOM AND CALL LIGHT. REPORT WILL BE GIVEN TO ASSUMING SHELLFISH PROCESSING LABORER NURSE SHORTLY.
--- NOTE | 2020-03-24 19:00 | NUR ---
ASSUMED CARE ASSUMED CARE OF PATIENT. RESTING WITH EYES CLOSED WHEN UNDISTURBED. ROUSES TO VERBAL STIMULI. DENIES C/O NAUSEA OR PAIN AT THIS TIME. BILATERAL UPPER EXTREMITY TREMORS NOTED. MONITOR SHOWS NSR, RATE 80-90s. SBP 100s. BANANA BAG INFUSING @ 200CC/HR PER ORDER. SEE SHIFT ASSESSMENT FOR FULL ASSESSMENT.
[2020-03-24 22:14] LABS: U Amphetamine Screen Not Detected; U Barbituate Screen Not Detected; U Benzodiazapine Screen DETECTED; U Buprenorphine Screen Not Detected; U Cannabinoids Screen Not Detected; U Cocaine Screen Not Detected; U Methadone Screen Not Detected; U Methamphetamine Screen Not Detected; U Opiates Screen Not Detected; U Oxycodone Screen Not Detected; U Phencyclidine Screen Not Detected; U Propoxyphene Screen Not Detected
[2020-03-25] MEDS ORDERED: PRILOSEC OTC20 MG PO (00:46)
[2020-03-25 04:15] LABS: BASOPHILS ABSOLUTE AUTO 0.06 K/mm3 (0.00-0.23); BASOPHILS PERCENT AUTO 1 % (0-2); EOSINOPHILS ABSOLUTE AUTO 0.11 K/mm3 (0.00-0.68); EOSINOPHILS PERCENT AUTO 2 % (0-6); Hematocrit 33.7 % (33.0-51.0); Hemoglobin 11.4 g/dL (11.5-16.0); IMMATURE GRAN ABSOLUTE AUTO 0.05 K/mm3 (0.00-0.10); IMMATURE GRAN PERCENT AUTO 1 % (0-1); LYMPHOCYTES PERCENT AUTO 22 % (21-46); MONOCYTES PERCENT AUTO 10 % (4-13); Mean Corpuscular HGB 34.4 pg (26.0-34.0); Mean Corpuscular HGB Conc 33.8 g/dL (31.5-36.5); Mean Corpuscular Volume 102 fL (80-100); Mean Platelet Volume 9.8 fL (9.1-12.4); NEUTROPHILS ABSOLUTE AUTO 4.86 K/mm3 (1.96-9.15); NEUTROPHILS PERCENT AUTO 66 % (41-73); Platelet Count 214 K/mm3 (150-400); RDW Coefficient Variation 15.1 % (11.7-14.2); Red Blood Cell Count 3.31 M/mm3 (3.80-5.20); White Blood Cell Count 7.38 K/mm3 (4.00-11.30)
[2020-03-25 04:37] LABS: Alanine Aminotransfer (ALT/SGP 89 U/L (12-78); Albumin, Blood 2.7 g/dL (3.4-5.0); Albumin/Globulin Ratio 0.7 (0.8-1.8); Alk Phos 168 U/L (50-136); Anion Gap 10 mmol/L (6-16); Aspartate Aminotrans (AST/SGOT 211 U/L (12-37); Bilirubin, Total 3.6 mg/dL (0.1-1.0); Blood Urea Nitrogen 4 mg/dL (8-24); Bun/Creatinine Ratio 10.3 (12.0-20.0); CO2, Blood 29 mmol/L (21-32); Calcium, Blood 8.3 mg/dL (8.5-10.1); Chloride, Blood 97 mmol/L (98-108); Creatinine, Blood 0.39 mg/dL (0.40-1.00); Glomerular Filtration Rate >60 (60-); Glucose, Blood 114 mg/dL (70-99); Potassium, Blood 2.7 mmol/L (3.5-5.5); Sodium, Blood 136 mmol/L (136-145); Total Protein, Blood 6.7 g/dL (6.4-8.2)
[2020-03-25 04:53] LABS: Beta-hydroxybutyrate 16.7 mg/dL (0.2-2.8)
--- NOTE | 2020-03-25 05:01 | NUR ---
PAIN/LOW POTASSIUM PT C/O UPPER ABDOMIMAL PAIN. DR. RED NOTIFIED AND NEW ORDER RECEIVED FOR FENTANYL IV. ALSO NOTIFIED OF POTASSIUM LEVEL OF 2.7- NEW ORDER RECEIVED FOR KCL 40mEq IV.
--- NOTE | 2020-03-25 06:03 | NUR ---
SHIFT SUMMARY NO ACUTE CHANGES. SLEPT WHEN UNDISTURBED. CONTINUES WITH MILD ANXIETY AND LABILE EMOTIONS. TEARFUL AT TIMES. CIWA 13-17. MEDICATED WITH ATIVAN 2MG IV X 2 DOSES DURING SHIFT WITH GOOD RESULTS. MEDICATED WITH FENTANYL 50MCG IV FOR UPPER ABDOMINAL PAIN WITH GOOD RELIEF. UP TO BATHROOM WITH STANDBY ASSIST. VOIDING ORANGISH URINE. D5NS INFUSING @ 100CC/HR PER ORDER. KCL 40mEq STARTED PER ORDER- RUNNING AT A SLOWER RATE AT PT'S REQUEST D/T C/O IV BURNING. WILL REPORT TO DAY SHIFT RN WHEN AVAILABLE.
--- NOTE | 2020-03-25 09:30 | NUR ---
ASSUMED CARE OF PT AT 0700. REPORT FROM CLARISSE LOO. PT RESTING IN BED. AWAKE. PT MILDLY ANXIOUS AND TEARFUL D/T MISSING LOCATION OF SISTER. PT ALSO EXPRESSES FRUSTRATIONS WITH NOT BEING ABLE TO GET INTO TREATMENT FACILITY. STATES SHE IS ON WAIT LIST D/T COVID. PT A&OX 4. ANSWERS QUESTIONS APPROPRIATELY. CIWA 15. TREMORS NOTED TO HANDS WHEN EXTENDED. C/O AU. ALSO C/O ABD PAIN, MEDICATED c MORPHINE ORDERED. PT STATES SHE WOULD LIKE TO EAT. DR MILNER AT BEDSIDE STATES HE WILL CHANGED PT DIET FOR LUNCH. ALSO ANTICIPATE STATUS CHANGE TO MEDICAL IF CIWA REMAINS STABLE. VSS. KCL INFUSING AND REDUCED RATE D/T PT C/O PAIN AT INFUSION SITE, PATENT, NO S/S OF INFILTRATION. IVF c ADDITIVES INFUSING. CALL LIGHT IN REACH. WILL CONTINUE TO MONITOR.
--- NOTE | 2020-03-25 17:01 | NUR ---
SHIFT SUMMARY PT STATUS CHANGED TO MED s TELE THIS SHIFT. CIWA 12-17. PT REPORTS LIBRIUM HELPING. ALSO STARTED GABAPENTIN FOR WITHDRAWAL. KCL CONTINUES TO INFUSE. PT CAN ONLY TOLERATE RATE OF 2 MEQ/HR. REFUSING PO POTASSIUM. PT HAD TWO EPISODES OF ABD PAIN, RELIEVED c PAIN MEDS. VSS. WILL CONTINUE TO MONITOR UNTIL REPORT TO ONCOMING NURSE.
--- NOTE | 2020-03-25 18:10 | NUR ---
PT ARRIVED TO THE UNIT VIA WHEELCHAIR. ORIENTED TO THE ROOM. CALL LIGHT WITHIN REACH.
--- NOTE | 2020-03-25 18:12 | NUR ---
PT TRANSFERRED TO MEDICAL FLOOR. ALL BELONGINGS c PT.
[2020-03-25 19:39] LABS: Anion Gap 7 mmol/L (6-16); Blood Urea Nitrogen 3 mg/dL (8-24); Bun/Creatinine Ratio 7.3 (12.0-20.0); CO2, Blood 31 mmol/L (21-32); Calcium, Blood 8.6 mg/dL (8.5-10.1); Chloride, Blood 100 mmol/L (98-108); Creatinine, Blood 0.41 mg/dL (0.40-1.00); Glomerular Filtration Rate >60 (60-); Glucose, Blood 118 mg/dL (70-99); Potassium, Blood 2.9 mmol/L (3.5-5.5); Sodium, Blood 138 mmol/L (136-145)
--- NOTE | 2020-03-25 20:41 | NUR ---
2008 CIWA SCORE OF 13. PT STATES SHE IS MILDY ANXIOUS. APPEARS DROWSY. PT ALSO STATES SHE IS GOING TO GET SOME SLEEP. BP ALSO ON THE LOWER END. DOES NOT APPEAR RESTLESS. PT DOES NOT REQUIRE MEDICATION AT THIS TIME.
--- NOTE | 2020-03-26 03:25 | NUR ---
0255 PT WOKE UP CRYING DUE TO PAIN IN ABD. PT RATE ABD PAIN 8/10. VSS. CIWA SCORE OF 13. PT'S IS MILDLY ANXIOUS DUE TO PAIN. 3MG IV GIVEN. PT ASKED WHEN HER LAST "WITHDRAWL MEDICATION" WAS GIVEN. I TOLD PT THAT LIBRIUM IS AVAILIBLE WHENEVER NOW. PT EDUCATED THAT LIBRIUM TREATS ANXIERTY INSTEAD OF PAIN. PT STATED SHE WILL WAIT AND SEE IF THE PAIN COMES DOWN FIRST WITH THE MORPHINE. WILL CONTINUE TO MONITOR.
--- NOTE | 2020-03-26 05:12 | NUR ---
PLASTIC MOULD MAKER SUMMARY PT A/O X4. CIWA HAS BEEN CONSISTENT OF 13 TONIGHT. LIBRIUM GIVEN ONCE FOR ANXIETY. PT HAS SLEPT THROUGHOUT THEN NIGHT UNTIL SUDDEN EPIGASTIRC PAIN 07/04. LOW GRADE FEVER OF 100.0 F. ROOM TEMP TURNED DOWN, BLANKETS TAKEN OFF. PAIN HAS BEEN TOLERABLE SINCE MORPHINE WAS GIVEN. PT HAS BEEN ON THE PHONE AND RESTING. TEMPERATURE HAS COME DOWN TO 99.3 FROM 100.5. VSS. WILL CONTINUE TO MONITOR.
[2020-03-26 05:15] LABS: Anion Gap 8 mmol/L (6-16); Blood Urea Nitrogen 3 mg/dL (8-24); Bun/Creatinine Ratio 6.6 (12.0-20.0); CO2, Blood 30 mmol/L (21-32); Calcium, Blood 8.7 mg/dL (8.5-10.1); Chloride, Blood 101 mmol/L (98-108); Creatinine, Blood 0.46 mg/dL (0.40-1.00); Glomerular Filtration Rate >60 (60-); Glucose, Blood 111 mg/dL (70-99); Sodium, Blood 139 mmol/L (136-145)
--- NOTE | 2020-03-26 14:25 | NUR ---
notified up ruq pain. Patient is wincing with movements, moaning. to order an ultrasound. Okayd to give pain medications prior to drSylvester assessing patient or ultrasound. will medicate per emar.
--- NOTE | 2020-03-26 14:40 | NUR ---
NOTED RUQ TO BE SWOLLEN VERY TENDER TO TOUCH. ULTRASOUND TO BE DONE AT 1530.
[2020-03-26 15:44] LABS: Alanine Aminotransfer (ALT/SGP 81 U/L (12-78); Albumin, Blood 2.5 g/dL (3.4-5.0); Albumin/Globulin Ratio 0.6 (0.8-1.8); Alk Phos 173 U/L (50-136); Anion Gap 8 mmol/L (6-16); Aspartate Aminotrans (AST/SGOT 224 U/L (12-37); Bilirubin, Total 4.1 mg/dL (0.1-1.0); Blood Urea Nitrogen 4 mg/dL (8-24); Bun/Creatinine Ratio 8.5 (12.0-20.0); CO2, Blood 29 mmol/L (21-32); Calcium, Blood 8.6 mg/dL (8.5-10.1); Chloride, Blood 100 mmol/L (98-108); Creatinine, Blood 0.47 mg/dL (0.40-1.00); Glomerular Filtration Rate >60 (60-); Glucose, Blood 116 mg/dL (70-99); Potassium, Blood 3.5 mmol/L (3.5-5.5); Sodium, Blood 137 mmol/L (136-145); Total Protein, Blood 6.5 g/dL (6.4-8.2)
[2020-03-27 05:34] LABS: Anion Gap 8 mmol/L (6-16); Blood Urea Nitrogen 4 mg/dL (8-24); Bun/Creatinine Ratio 11.1 (12.0-20.0); CO2, Blood 28 mmol/L (21-32); Calcium, Blood 8.2 mg/dL (8.5-10.1); Chloride, Blood 102 mmol/L (98-108); Creatinine, Blood 0.36 mg/dL (0.40-1.00); Glomerular Filtration Rate >60 (60-); Glucose, Blood 98 mg/dL (70-99); Potassium, Blood 3.3 mmol/L (3.5-5.5); Sodium, Blood 138 mmol/L (136-145)
--- NOTE | 2020-03-27 06:20 | NUR ---
SUMMARY PT PAIN TX PER EMAR. PT SLEPT WELL UNTIL PAIN WOKE HER UP. A OT DOSE OF 0.5 MG DILAUDID WAS ORDERED BY PROVIDER JACKIE. PT PAIN DECREASED BUT DEVELOPED SOME NAUSEA. PROVIDER JACKIE ORDERED PHENERGAN PRN. PT NAUSEA RESOLVED ON OWN. PT MAY BENEFIT FROM A BREAK THROUGH PAIN MED. PT HAD WALKED THE FLOOR LAST NIGHT. PT HAD MADE STATEMENTS OF WANTING TO GO HOME. PT CURRENTLY SLEEPING AND BREATHING EASY. PT HAS BEEN NPO SINCE 0000 HRS. PT DID HAVE A SHARP INCREASE IN PAIN THIS AM AND MS WAS GIVEN @ APPOX. 0300 THIS AM. WILL PASS ON TO DAY RN DUE TO PT HAVING A HIDA SCAN TODAY. CALL LIGHT IN REACH.
--- NOTE | 2020-03-27 07:38 | NUR ---
RUQ PAIN + HIDA SCAN: PATIENT SCHEDULED FOR HIDA SCAN THIS MORNING. ONLY MEDICATIONS ORDERED FOR PAIN ARE NARCOTICS. PER IMAGING, SHE NEEDS A 6 HOUR WINDOW WITHOUT NARCOTICS BEFORE THE SCAN CAN BE COMPLETED. PATIENT REPORTING HIGH LEVELS OF PAIN THIS MORNING ACCOMPANIED BY MOANING AND CRYING. NOTIFIED DR. MILNER. NEW ORDERS PLACED BY DR. MILNER.
[2020-03-27 08:40] LABS: Albumin, Blood 2.3 g/dL (3.4-5.0); Albumin/Globulin Ratio 0.6 (0.8-1.8); Bilirubin, Indirect 0.9 mg/dL (0.1-0.7); Bilirubin, Total 3.9 mg/dL (0.1-1.0); Globulin, Blood 3.9 g/dL (2.2-4.0); Total Protein, Blood 6.2 g/dL (6.4-8.2)
[2020-03-27 11:23] LABS: Hematocrit 32.9 % (33.0-51.0); Hemoglobin 10.6 g/dL (11.5-16.0); Mean Corpuscular HGB 35.3 pg (26.0-34.0); Mean Corpuscular HGB Conc 32.2 g/dL (31.5-36.5); Mean Platelet Volume 10.4 fL (9.1-12.4); Platelet Count 167 K/mm3 (150-400); RDW Coefficient Variation 15.9 % (11.7-14.2); RDW Standard Deviation 63.1 fL (35.1-46.3); White Blood Cell Count 9.64 K/mm3 (4.00-11.30)
--- NOTE | 2020-03-27 11:26 | NUR ---
LOW BP AND HIDA SCAN: PATIENT RECEIVED A 500ML NS BOLUS FOR BP AFTER DISCUSSION WITH DR. MILNER. PATIENT'S BP CONTINUES TO BE LOW (SEE REVIEW). PATIENT HAS ABDOMINAL DISTENTION THAT THE RN FROM YESTERDAY REPORTS INCREASED OVER SIZE OVER THE SHIFT. PATIENT SKIN TONE IS PALE. PATIENT DENIES LIGHTHEADEDNESS OR DIZZINESS. DR. MILNER NOTIFIED. NEW ORDERS PLACED. ABLE TO START 1000ML NS IV BOLUS PRIOR TO PATIENT LEAVING THE FLOOR FOR HIDA SCAN. VISITED PATIENT IN IMAGING TO ASSIST WITH IV PUMP. PATIENT ALERT AND ORIENTED AND LYING STILL ON THE IMAGING TABLE.
[2020-03-27 11:27] LABS: Mean Corpuscular Volume 110 fL (80-100)
--- NOTE | 2020-03-27 12:48 | NUR ---
UPDATE ON CONDITION: PATIENT BACK FROM HIDA SCAN. CONTINUES TO HAVE HIGH LEVELS OF PAIN. PATIENT LOOKING FORWARD TO EATING AND PAIN MEDICATIONS. DENIES OTHER NEEDS. PATIENT DENIES SOB OR DIZZINESS. CALLED DR. MILNER TO NOTIFY HIM OF LAB RESULTS, PATIENT BP, PATIENT PAIN, AND RESULTS OF HIDA SCAN. NEW ORDERS RECEIVED AND ENTERED IN REGARDS TO DIET AND PAIN MEDICATION (SEE ORDERS).
--- NOTE | 2020-03-27 19:30 | NUR ---
ASSUMED CARE RECEIVED REPORT FROM EZE EAGLE. ASSUMED CARE OF PT. SITTING UP IN BED, IN APPARENT DISCOMFORT, REPORTING ABD PAIN. NO OTHER S/S DISTRESS NOTED. DAY RN MEDICATING PT FOR PAIN. PT DENIES OTHER NEEDS AT THIS TIME, CALL LIGHT, POSSESSIONS IN REACH, BED IN LOWEST POSITION WITH ALARM ON. WILL CONTINUE TO MONITOR.
--- NOTE | 2020-03-27 19:46 | NUR ---
END OF SHIFT SUMMARY: PATIENT CONTINUES TO HAVE HIGH LEVELS OF PAIN. PATIENT IS ABLE TO ACHIEVE SOME COMFORT WITH THE HEATING PAD AND PRN PAIN MEDICATIONS. PATIENT TOLERATED HIDA SCAN WELL THIS MORNING. PATIENT REPORTED THAT SHE FELL ASLEEP ON THE TABLE. PATIENT HAD LOWER BP'S IN THE AM (SEE NURSE'S NOTES). DISCUSSED WITH DR. MILNER. PATIENT RECEIVED FLUID BOLUSES. BY THE AFTERNOON, PATIENT'S BP HAD INCREASED (SEE VITALS). THROUGHOUT PATIENT DENIED DIZZINESS OR LIGHTHEADEDNESS. PATIENT ABLE TO AMBULATE SLOWLY IN THE JONES THIS AFTERNOON. PATIENT HAS A LOW URINE OUTPUT. NOTIFIED DR. MILNER. NEW ORDERS FOR FLUIDS. (SEE NURSE'S NOTE) A VOIDING HAT PLACED IN THE TOILET TO BETTER ASSESS. PATIENT ANXIOUS AT TIMES ABOUT PLAN OF CARE AND PAIN. PROVIDED REASSURANCE AND ENCOURAGEMENT.
--- NOTE | 2020-03-27 23:58 | NUR ---
0976 SPOKE TO KAREN MEJIA REGARDING PT'S POTASSIUM LEVEL. NO NEW ORDERS RECEIVED AT THIS TIME. PT HAS CMP ORDERED FOR AM LABS ON 03/28. WILL CONTINUE TO MONITOR.
--- NOTE | 2020-03-28 00:40 | NUR ---
0040 THIS RN IN PT ROOM ADMINISTERING PAIN MEDICATION. PT ABD INCREASINGLY DISTENDED AND PAINFUL T/O, PT APPEARS MORE PALE THAN AT BEGINNING OF SHIFT, AND APPEARS GENERALLY UNWELL. THIS RN AND 2 OTHER RNS IN ROOM ASSESSING PT, AGREE THAT PT CONDITION HAS CHANGED. PT IN POSITION OF COMFORT WITH K-PACK IN PLACE, WILL SPEAK TO PHYSICIAN REGARDING CHANGE IN PT CONDITION.
--- NOTE | 2020-03-28 01:35 | NUR ---
[address] MCCARTHY REGARDING PT'S BP TRENDING LOW, UNCONTROLLED PAIN, INCREASING ABD DISTENTION/TENDERNESS, AND GENERAL DETERIORATION IN CONDITION. PHYSICIAN IN TO SEE PT. DISCUSSED IMPORTANCE OF IMPROVING BP'S. PLAN IS TO ORDER ADDITIONAL TESTS, CONTINUE IVF PREVIOUSLY ADMINISTERED, AND STABILIZE BP'S. ORDERS RECEIVED. WILL CONTINUE TO MONITOR.
[2020-03-28 05:38] LABS: BASOPHILS ABSOLUTE AUTO 0.06 K/mm3 (0.00-0.23); BASOPHILS PERCENT AUTO 1 % (0-2); EOSINOPHILS ABSOLUTE AUTO 0.23 K/mm3 (0.00-0.68); EOSINOPHILS PERCENT AUTO 2 % (0-6); Hematocrit 33.6 % (33.0-51.0); IMMATURE GRAN ABSOLUTE AUTO 0.11 K/mm3 (0.00-0.10); IMMATURE GRAN PERCENT AUTO 1 % (0-1); LYMPHOCYTES ABSOLUTE AUTO 2.23 K/mm3 (0.84-5.20); LYMPHOCYTES PERCENT AUTO 21 % (21-46); MONOCYTES ABSOLUTE AUTO 1.18 K/mm3 (0.16-1.47); MONOCYTES PERCENT AUTO 11 % (4-13); Mean Corpuscular HGB 35.7 pg (26.0-34.0); Mean Corpuscular HGB Conc 32.7 g/dL (31.5-36.5); Mean Corpuscular Volume 109 fL (80-100); Mean Platelet Volume 10.5 fL (9.1-12.4); NEUTROPHILS ABSOLUTE AUTO 6.78 K/mm3 (1.96-9.15); NEUTROPHILS PERCENT AUTO 64 % (41-73); Platelet Count 214 K/mm3 (150-400); RDW Coefficient Variation 16.5 % (11.7-14.2); RDW Standard Deviation 65.4 fL (35.1-46.3); Red Blood Cell Count 3.08 M/mm3 (3.80-5.20); White Blood Cell Count 10.59 K/mm3 (4.00-11.30)
[2020-03-28 05:54] LABS: Alanine Aminotransfer (ALT/SGP 58 U/L (12-78); Albumin, Blood 2.2 g/dL (3.4-5.0); Albumin/Globulin Ratio 0.6 (0.8-1.8); Alk Phos 151 U/L (50-136); Anion Gap 7 mmol/L (6-16); Aspartate Aminotrans (AST/SGOT 175 U/L (12-37); Bilirubin, Total 3.8 mg/dL (0.1-1.0); Blood Urea Nitrogen 7 mg/dL (8-24); CO2, Blood 27 mmol/L (21-32); Calcium, Blood 7.8 mg/dL (8.5-10.1); Chloride, Blood 107 mmol/L (98-108); Creatinine, Blood 0.44 mg/dL (0.40-1.00); Globulin, Blood 3.8 g/dL (2.2-4.0); Glomerular Filtration Rate >60 (60-); Glucose, Blood 95 mg/dL (70-99); Potassium, Blood 3.4 mmol/L (3.5-5.5); Sodium, Blood 141 mmol/L (136-145)
--- NOTE | 2020-03-28 06:25 | NUR ---
SHIFT SUMMARY PT ASLEEP AT THIS TIME, HAS HAD A ROUGH NIGHT. PAIN MANAGED WITH MEDICATIONS ORDERED, PT EXPERIENCING LITTLE RELIEF. BP'S STABILIZING. ABD REMAINS DISTENDED AND TENDER, K-PACK IN PLACE. PT TOLERATING PO FLUIDS WELL. PT STATES APPETITE IS IMPROVING, WANTS TO BE ABLE TO EAT WHAT SHE WANTS. REGULAR DIET ORDERED FOR BREAKFAST THIS AM. PT STATING SHE "WANTS TO GO HOME." APPEARS FRUSTRATED AND WITHDRAWN. REMINDED PT THAT EVERYTHING POSSIBLE IS BEING DONE TO DISCERN THE BEST COURSE OF TX. PT RECEPTIVE BUT REMAINS FRUSTRATED. STATES SHE "JUST WANTS TO BE KNOCKED OUT." REMINDED PT OF IMPORTANCE OF MAINTAINING STABLE BP'S. RECEPTIVE TO EDUCATION. DENIES NEEDS AT THIS TIME, CALL LIGHT, POSSESSIONS IN REACH, BED IN LOWEST POSITION WITH ALARM ON. WILL CONTINUE TO MONITOR UNTIL DAY RN ASSUMES CARE.
--- NOTE | 2020-03-28 07:16 | NUR ---
CT ABD WITH CONTRAST DR. GARCIA NOTIFIED OF RADIOLOGYS REQUEST TO USE CONTRAST FOR THE ORDERED CT OF ABD. DR. MILNER ORDERED THAT CONTRAST WILL BE OKAY AND TO UPDATE ORDER.
--- NOTE | 2020-03-28 16:52 | NUR ---
SHIFT SUMMARY PT EDUCATED ON TRYING TO AVOID IV NARCOTICS IF POSSIBLE TO HELP WITH ABD DISTENTION. PT HAS BEEN SLEEPING MOST THE AFTERNOON. TEARFUL ON AND OFF THROUGHOUT SHIFT IN RELATION TO ABD PAIN. PT FEET ELEVATED ON PILLOW AND SWELLING IS IMPROVING. IV FLUIDS DC'ED PER DR. MILNER. PT URINE CONTINUES TO BE VERY DARK & TEA/ORANGE IN COLOR. DR. MILNER AWARE. NO OTHER ACUTE CHANGES IN ASSESSMENT AT THIS TIME. VSS. WILL CONTINUE TO MONITOR UNTIL TURNOVER IS COMPLETE. SEE EMAR FOR PAIN MED ADMINISTRATION.
--- NOTE | 2020-03-29 04:56 | NUR ---
SHIFT SUMMARY: SBP 94 AND 99 TONIGHT. PT TEARFUL SEVERAL TIMES TONIGHT, REPORTING SEVERE ABDOMINAL PAIN IN RUQ. UNSUCCESSFUL WEANING IV PAIN MEDS TONIGHT. PT FELL ASLEEP W/BOTH DOSE OPTIONS OF IV PAIN MEDS. WILL WORK ON ENCOURAGING PT TO USE PO ANALGESIC ONLY. ABD CONT TO BE DISTENDED AND PAINFUL W/ PALPATION. PT HAS NOT YET HAD A BM. REPORTS PASSING FLATUS. BT HYPOACTIVE. HAS TOLERATED PO INTAKE. EDEMA IN BLE IMPROVING. NO ACUTE CHANGES TONIGHT. WILL CONT TO MONITOR.
[2020-03-29] MEDS ORDERED: Nicoderm Cq1 EAC1 TOP (12:09)
[2020-03-29] MEDS ORDERED: DOCU100 PO (12:09)
[2020-03-29] MEDS ORDERED: GABA300 PO (12:09)
[2020-03-29] MEDS ORDERED: MIRALAX17 GM PO (12:10)
--- NOTE | 2020-03-29 12:35 | NUR ---
SUMMARY/DISCHARGE PT DISCHARGED TO HOME, PT VERBALIZED UNDERSTANDING OF DISCHARGE ORDERS REGARDING MEDS AND FOLLOW UP, PT TAKEN OUT SAFELY VIA WHEELCHAIR
== END 2020-03-29 12:19 | disposition home or self-care (01) | DRG 872 ==
LOC: ER 16:05 → ICUW 17:17 → MEDS 17:17 → ICUW 18:25 → MEDS 03-25 18:08
PROVIDERS: Emergency Medicine; Hospitalist; Nurse Practitioner Acute Care; Physician Assistant; ADMIT Internal Medicine
DX: A41.9 Sepsis, unspecified organism (principal); F10.230 Alcohol dependence with withdrawal, uncomplicated; E87.2 Acidosis; E87.1 Hypo-osmolality and hyponatremia; K92.1 Melena; G40.89 Other seizures; R65.10 Systemic inflammatory response syndrome (SIRS) of non-infectious origin without acute organ dysfunction; F10.220 Alcohol dependence with intoxication, uncomplicated; E87.6 Hypokalemia; F17.210 Nicotine dependence, cigarettes, uncomplicated; K72.10 Chronic hepatic failure without coma; K21.9 Gastro-esophageal reflux disease without esophagitis; F41.9 Anxiety disorder, unspecified
CPT/HCPCS: 36415; 70450; 72125; 74177; 76705; 78226; 80048; 80053; 80076; 81025; 82010; 82140; 82947; 83605; 83690; 83735; 84100; 85025; 85027; 87040; 96374; 99285-25; A9270; A9537; G0480; J0696; J1170; J1885; J2060; J2270; J2405; J3010; J3411; J3475; J3480; J7030; J7040; J7042; Q9967

== ENCOUNTER 2020-04-01 17:43 | Inpatient (IN) | payer OTHER ==
[~2020-04-01] VITALS: Ht 167.6 cm; Wt 81.8 kg
[~2020-04-01 17:43] MED LIST changes: +DOCU100 PO; +GABA300 PO; +MIRALAX17 GM PO; +Nicoderm Cq1 EAC1 TOP; +ONDA4 PO; +PRILOSEC OTC20 MG PO
[2020-04-01 18:25] LABS: BASOPHILS ABSOLUTE AUTO 0.07 K/mm3 (0.00-0.23); BASOPHILS PERCENT AUTO 1 % (0-2); EOSINOPHILS ABSOLUTE AUTO 0.11 K/mm3 (0.00-0.68); EOSINOPHILS PERCENT AUTO 1 % (0-6); Hematocrit 38.8 % (33.0-51.0); Hemoglobin 12.7 g/dL (11.5-16.0); IMMATURE GRAN ABSOLUTE AUTO 0.13 K/mm3 (0.00-0.10); IMMATURE GRAN PERCENT AUTO 1 % (0-1); LYMPHOCYTES ABSOLUTE AUTO 2.06 K/mm3 (0.84-5.20); LYMPHOCYTES PERCENT AUTO 15 % (21-46); MONOCYTES ABSOLUTE AUTO 1.28 K/mm3 (0.16-1.47); MONOCYTES PERCENT AUTO 9 % (4-13); Mean Corpuscular HGB 34.9 pg (26.0-34.0); Mean Corpuscular HGB Conc 32.7 g/dL (31.5-36.5); Mean Corpuscular Volume 107 fL (80-100); Mean Platelet Volume 9.6 fL (9.1-12.4); NEUTROPHILS ABSOLUTE AUTO 9.93 K/mm3 (1.96-9.15); NEUTROPHILS PERCENT AUTO 73 % (41-73); Platelet Count 576 K/mm3 (150-400); RDW Coefficient Variation 16.7 % (11.7-14.2); RDW Standard Deviation 65.6 fL (35.1-46.3); Red Blood Cell Count 3.64 M/mm3 (3.80-5.20); White Blood Cell Count 13.58 K/mm3 (4.00-11.30)
[2020-04-01 18:45] LABS: Alanine Aminotransfer (ALT/SGP 48 U/L (12-78); Albumin, Blood 2.5 g/dL (3.4-5.0); Albumin/Globulin Ratio 0.5 (0.8-1.8); Alk Phos 203 U/L (50-136); Anion Gap 7 mmol/L (6-16); Aspartate Aminotrans (AST/SGOT 182 U/L (12-37); Blood Urea Nitrogen 3 mg/dL (8-24); Bun/Creatinine Ratio 6.3 (12.0-20.0); CO2, Blood 26 mmol/L (21-32); Calcium, Blood 8.9 mg/dL (8.5-10.1); Chloride, Blood 104 mmol/L (98-108); Creatinine, Blood 0.48 mg/dL (0.40-1.00); Globulin, Blood 4.8 g/dL (2.2-4.0); Glomerular Filtration Rate >60 (60-); Glucose, Blood 93 mg/dL (70-99); Potassium, Blood 3.5 mmol/L (3.5-5.5); Sodium, Blood 137 mmol/L (136-145); Total Protein, Blood 7.3 g/dL (6.4-8.2)
[2020-04-01] MEDS ORDERED: DOK100 M2 PO (19:46)
[2020-04-01] MEDS ORDERED: MIRALAX17 G1 PO (19:46)
[2020-04-01 22:46] LABS: Adenovirus Not Detected (NOT DETECT); Bordetella pertussis Not Detected (NOT DETECT); Chlamydophila pneumoniae Not Detected (NOT DETECT); Coronavirus 229E Not Detected (NOT DETECT); Coronavirus HKU1 Not Detected (NOT DETECT); Coronavirus NL63 Not Detected (NOT DETECT); Coronavirus OC43 Not Detected (NOT DETECT); Human Metapneumovirus Not Detected (NOT DETECT); Human Rhinovirus/Enterovirus Not Detected (NOT DETECT); Influenza A/2009-H1 Not Detected (NOT DETECT); Influenza A/H1 Not Detected (NOT DETECT); Influenza A/H3 Not Detected (NOT DETECT); Influenza B Not Detected (NOT DETECT); Mycoplasma pneumoniae Not Detected (NOT DETECT); Parainfluenza Virus 1 Not Detected (NOT DETECT); Parainfluenza Virus 2 Not Detected (NOT DETECT); Parainfluenza Virus 3 Not Detected (NOT DETECT); Parainfluenza Virus 4 Not Detected (NOT DETECT); Respiratory Syncytial Virus Not Detected (NOT DETECT)
--- NOTE | 2020-04-01 23:14 | NUR ---
ADMIT NOTE RECEIVED HANDOFF FROM ER NURSE RENATA. PT TRANSFERED TO FLOOR VIA GURNEY. PERSONAL POSSESSIONS WITH PT. PT ORIENTED TO UNIT. CALL BUTTON WITHIN REACH.
--- NOTE | 2020-04-02 04:44 | NUR ---
SHIFT SUMMARY ADMITTED FOR PNEUMONIA. FULL CODE. R/O COVID PENDING. REGULAR DIET, 2 LPM O2 (RA IS BASELINE), A&O X4, STANDBY ASSIST DUE TO DYSPNEA W/EXERTION. HX: ETOH, SHE REPORTS SEIZURES (NONE WITNESSED), ANXIETY, PANCREATITIS, ENDOMETRIOSIS, FATTY LIVER. BILIRUBIN ELEVATED ON ADMIT WAS 6.0, AWAITING MORNING LABS. WBC 13.58. HX OF BENZO/IV OPIOID SEEKING (SEE PREVIOUS DISCHARGE REPORT). SHE REPORTS DRY COUGH, HEADACHE, SEVERE ABDOMINAL PAIN, NEW ONSET DRY SCALY SKIN ON ABDOMEN.
[2020-04-02 04:46] LABS: BASOPHILS PERCENT AUTO 1 % (0-2); EOSINOPHILS ABSOLUTE AUTO 0.23 K/mm3 (0.00-0.68); EOSINOPHILS PERCENT AUTO 2 % (0-6); Hematocrit 33.5 % (33.0-51.0); Hemoglobin 10.9 g/dL (11.5-16.0); IMMATURE GRAN PERCENT AUTO 1 % (0-1); LYMPHOCYTES ABSOLUTE AUTO 2.61 K/mm3 (0.84-5.20); LYMPHOCYTES PERCENT AUTO 20 % (21-46); MONOCYTES ABSOLUTE AUTO 1.31 K/mm3 (0.16-1.47); MONOCYTES PERCENT AUTO 10 % (4-13); Mean Corpuscular HGB 35.4 pg (26.0-34.0); Mean Corpuscular HGB Conc 32.5 g/dL (31.5-36.5); Mean Corpuscular Volume 109 fL (80-100); NEUTROPHILS ABSOLUTE AUTO 8.87 K/mm3 (1.96-9.15); NEUTROPHILS PERCENT AUTO 67 % (41-73); Platelet Count 473 K/mm3 (150-400); RDW Coefficient Variation 16.6 % (11.7-14.2); RDW Standard Deviation 66.8 fL (35.1-46.3); Red Blood Cell Count 3.08 M/mm3 (3.80-5.20); White Blood Cell Count 13.22 K/mm3 (4.00-11.30)
[2020-04-02 05:11] LABS: Alanine Aminotransfer (ALT/SGP 38 U/L (12-78); Albumin, Blood 2.2 g/dL (3.4-5.0); Albumin/Globulin Ratio 0.5 (0.8-1.8); Alk Phos 158 U/L (50-136); Anion Gap 9 mmol/L (6-16); Aspartate Aminotrans (AST/SGOT 145 U/L (12-37); Blood Urea Nitrogen 3 mg/dL (8-24); Bun/Creatinine Ratio 6.8 (12.0-20.0); CO2, Blood 27 mmol/L (21-32); Calcium, Blood 8.1 mg/dL (8.5-10.1); Chloride, Blood 104 mmol/L (98-108); Creatinine, Blood 0.44 mg/dL (0.40-1.00); Globulin, Blood 4.2 g/dL (2.2-4.0); Glomerular Filtration Rate >60 (60-); Glucose, Blood 85 mg/dL (70-99); Potassium, Blood 3.2 mmol/L (3.5-5.5); Sodium, Blood 140 mmol/L (136-145); Total Protein, Blood 6.4 g/dL (6.4-8.2)
[2020-04-02 10:10] LABS: International Normalized Ratio 1.23
--- NOTE | 2020-04-02 16:58 | NUR ---
shift summary patient is very anxious. during the initial visit with dr. Eden the patient was worried about her current state of health. She was unaware of what was the cause of her shortness of breath. She states that she has not had a drop of alcohol since her release from the hospital. She is scared about her abdominal pain and her liver. She had a consult with Dr. Lara who spoke with her about alcoholic hepatitis, and that could be the cause of her fever and her abdominal pain. looking back at the images from her last admission the doctor states that she needs to continue to be seen. Her CXR came back. Results in the chart. Patient has taken pain medication today for abdominal pain. She is on room air, and sats are in the low nineties. We did fight with her temperature today which did get all the way to 102.9. She is now on fluids and very steady. She is on Q4 vitals for 6 sets, and prn for ciwas. current CIWA scores range from 5-7. She is doing better with the rest of today's medications. She did have some mild nausea as the day went on and refused some medications.Although she is feeling better.
[2020-04-03 05:47] LABS: Alanine Aminotransfer (ALT/SGP 37 U/L (12-78); Albumin, Blood 2.1 g/dL (3.4-5.0); Albumin/Globulin Ratio 0.5 (0.8-1.8); Alk Phos 155 U/L (50-136); Anion Gap 8 mmol/L (6-16); Aspartate Aminotrans (AST/SGOT 142 U/L (12-37); Bilirubin, Total 5.7 mg/dL (0.1-1.0); Blood Urea Nitrogen 6 mg/dL (8-24); Bun/Creatinine Ratio 14.2 (12.0-20.0); CO2, Blood 26 mmol/L (21-32); Calcium, Blood 8.2 mg/dL (8.5-10.1); Chloride, Blood 104 mmol/L (98-108); Creatinine, Blood 0.42 mg/dL (0.40-1.00); Globulin, Blood 4.5 g/dL (2.2-4.0); Glomerular Filtration Rate >60 (60-); Glucose, Blood 101 mg/dL (70-99); Potassium, Blood 4.2 mmol/L (3.5-5.5); Sodium, Blood 138 mmol/L (136-145); Total Protein, Blood 6.6 g/dL (6.4-8.2)
--- NOTE | 2020-04-03 05:51 | NUR ---
SHIFT SUMMARY PT IS A 34 Y/O FEMALE, ADMITTED FOR SOB AND FEVER. CURRENTLY COVID R/O, AWAITING TEST RESULTS. PT IS A&O X 4, AND INDEPENDENT UP TO THE BATHROOM. SHE DID APPEAR ANXIOUS AT TIMES DURING THE NIGHT. PT REPORTED ABD PAIN, AND WAS MEDICATED X2 WITH PRN IV MORPHINE. SHE ALSO REPORTED MILD SOB WITH EXERTION AND A NONPRODUCTIVE COUGH THIS AM. NO COMPLAINTS OF NAUSEA. PT'S BP WAS IN THE 90S SYSTOLIC DURING THE NIGHT. HER O2 SATS WERE LOW AT 88-89% ON RA, SHE WAS PLACED ON 2L OF O2 FOR A COUPLE OF HOURS DURING THE NIGHT, AND IT WAS REMOVED WHEN PT REMAINED > 91% ON RA AROUND 2300. ALL OTHER VITALS STABLE. TEMP REMAINED STABLE. PT RECEIVING CONTINUOUS LR @ 125 ML/HR. NO OTHER ACUTE CHANGES IN PT CONDITION NOTED. WILL CONTINUE TO MONITOR AND TREAT PER EMAR UNTIL HAND OFF TO DAY SHIFT RN.
--- NOTE | 2020-04-03 07:35 | NUR ---
ASSUMPTION OF CARE NOTE- PATIENT LOOKS MUCH BETTER THAN YESTERDAY. SHE IS IN A GOOD MOOD, ASKING FOR FOOD AND I HAVE SENT A FOOD REQUEST FOR "EDIBLE" FOOD THAT SHE HAS ASKED FOR THIS MORNING. ALSO SENT A REQUEST FOR A MENU FOR THE PATIENT. SHE STATES SHE IS TRYING TO MANAGE HER PAIN AND PUSH HER PAIN MEDICATIONS OUT TO 5 HOURS (SHE IS AWARE THAT SHE MAY HAVE TEM EVERY 4) THAT WAY SHE IS ABLE OT TOLERATE AT HOME. TODAYS BIGGEST CONCERN IS PAIN MANAGEMENT AND RELIEF OF THE ITCHING.
[2020-04-03 10:07] LABS: HBSAG SCREEN Negative (Negative); HEP A AB, IGM Negative (Negative); HEP B CORE AB, TOT Negative (Negative); HEP C VIRUS AB <0.1 (0.0-0.9)
--- NOTE | 2020-04-03 11:24 | NUR ---
PATIENT IS UNHAPPY ABOUT HER CHANGE OF PAIN MEDICATIONS BUT DOES NOT WANT TO BE POKED FOR ANOTHER IV AT TIHS TIME. WE ARE CURRENTLY WORKING ON PAIN MANAGEMENT.
--- NOTE | 2020-04-03 14:23 | NUR ---
PATIENT IS COMPLAINING OF SIGNIFICANT PAIN NOW THAT IV ACCESS IS LOST. SHE REPORTS THAT SHE IS TRUGGLING TO SWALLOW, AND INABLE TO CONTINUE WITH HER CURRENT PAIN REGIMEN, SHE IS REQUESTING NEW IV ACCESS BE STARTED, STARTED BACK ON IV FLUIDS AND IV PAIN MEDICATOINS. WILL CHECK WITH THE DOCTOR
--- NOTE | 2020-04-03 18:48 | NUR ---
SHIFT SUMMARY PATIENT IS PLEASANT, ALERT AND ORIENTED. SHE IS NO LONGER RUNNING A FEVER. SHE WAS GIVEN IBUPROFEN. SHE IS BACK ON IV FLUIDS AFTER A PERIOD OFF TODAY. NO ACUTE CONCERNS AT THIS TIME. SHE IS BATTLING WITH PAIN MANAGEMNET. SHE HAS IV MORPHINE AVAILABLE FOR BREAKTHROUGH PAIN AND PO OXYCODONE FOR JAIL PAIN MANAGEMENT OF HER ABDOMINAL PAIN.
[2020-04-04 05:54] LABS: Alanine Aminotransfer (ALT/SGP 36 U/L (12-78); Albumin, Blood 1.9 g/dL (3.4-5.0); Albumin/Globulin Ratio 0.5 (0.8-1.8); Alk Phos 157 U/L (50-136); Anion Gap 8 mmol/L (6-16); Aspartate Aminotrans (AST/SGOT 162 U/L (12-37); Bilirubin, Total 4.3 mg/dL (0.1-1.0); Blood Urea Nitrogen 6 mg/dL (8-24); Bun/Creatinine Ratio 13.4 (12.0-20.0); CO2, Blood 27 mmol/L (21-32); Calcium, Blood 7.9 mg/dL (8.5-10.1); Chloride, Blood 104 mmol/L (98-108); Creatinine, Blood 0.45 mg/dL (0.40-1.00); Globulin, Blood 4.2 g/dL (2.2-4.0); Glomerular Filtration Rate >60 (60-); Glucose, Blood 72 mg/dL (70-99); Potassium, Blood 3.6 mmol/L (3.5-5.5); Sodium, Blood 139 mmol/L (136-145); Total Protein, Blood 6.1 g/dL (6.4-8.2)
--- NOTE | 2020-04-04 06:04 | NUR ---
SHIFT SUMMARY PT IS A 34 Y/O FEMALE, ADMITTED FOR SOB AND FEVER. SHE IS A&O X 4, WITH SOME EPISODES OF INCREASED ANXIETY. INDEPENDENT TO THE BATHROOM. PT REPORTED AN INTERMITTENT COUGH AND INCREASED SOB, AND CAN SOUND AUDIBLY WHEEZY AFTER COUGHING AT TIMES. SHE REPORTED LOWER ABD PAIN AT A 7/10, AND WAS MEDICATED X2 WITH PRN IV MORPHINE, AND X1 WITH PRN PO OXYCODONE. PT SLEPT WELL THROUGH THE NIGHT. BP WAS LOW IN THE 90S SYSTOLICALLY DURING THE NIGHT. AFEBRILE. ALL OTHER VITALS STABLE. NO COMPLAINTS OF NAUSEA. NO ACUTE CHANGES IN PT CONDITION NOTED. WILL CONTINUE TO MONITOR AND TREAT PER EMAR UNTIL HAND OFF TO DAY SHIFT RN.
[2020-04-04 12:51] LABS: Adenovirus Not Detected (NOT DETECT); Bordetella pertussis Not Detected (NOT DETECT); Chlamydophila pneumoniae Not Detected (NOT DETECT); Coronavirus 229E Not Detected (NOT DETECT); Coronavirus HKU1 Not Detected (NOT DETECT); Coronavirus NL63 Not Detected (NOT DETECT); Coronavirus OC43 Not Detected (NOT DETECT); Human Metapneumovirus Not Detected (NOT DETECT); Human Rhinovirus/Enterovirus Not Detected (NOT DETECT); Influenza A/2009-H1 Not Detected (NOT DETECT); Influenza A/H1 Not Detected (NOT DETECT); Influenza A/H3 Not Detected (NOT DETECT); Influenza B Not Detected (NOT DETECT); Mycoplasma pneumoniae Not Detected (NOT DETECT); Parainfluenza Virus 1 Not Detected (NOT DETECT); Parainfluenza Virus 2 Not Detected (NOT DETECT); Parainfluenza Virus 3 Not Detected (NOT DETECT); Parainfluenza Virus 4 Not Detected (NOT DETECT); Respiratory Syncytial Virus Not Detected (NOT DETECT)
--- NOTE | 2020-04-04 15:49 | NUR ---
Initial spiritual care note: Bev was tearful and irritable. She reports frustration with lack of progress. She knows she needs to quit drinking and tells me she can do this by moving to [place] to be with her mom. She has been through ETOH rehab several times. She appears to be actively grieving the loss of her 3 yrs ago. He was driving drunk and killed in MVA. She admits she has been drinking healvily since that time. She has two children who are living with her mom. I provided bereavement hiv counselor and recommended she find a counselor soon. Her grief has been largely untreated and I suspect this is a driving force for her drinking. Regardless, Bev reports little alex in physicians and expresses a deep mistrust of the medical system. She declined prayer, but appeared top benefit from hiv counselor and affirmation. I will remain available.
--- NOTE | 2020-04-04 16:59 | NUR ---
SHIFT SUMMARY PT C/O PAIN THROUGHOUT SHIFT. SEE EMAR. REPEAT CHEST X-RAY COMPLETED THIS SHIFT. NEGATIVE RESP PANEL. COVID19 TEST PENDING. PT HAD FEVER THIS AFTERNOON, IBUPROPHEN GIVEN, FEVER REDUCES TO 100.4. PT ANXIOUS IN ROOM. TEARFUL OFTEN WHEN TALKING ABOUT CARE. NO OTHER CHANGES IN ASSESSMENT AT THIS TIME. VSS. WILL CONTINUE TO MONITOR UNTIL TURNOVER IS COMPLETE.
--- NOTE | 2020-04-04 22:52 | NUR ---
PT sleeping soundly after dinner, ate 60% gen diet. On IV fluids LR at 100 ml HR. PT has been medicated with oxycodone 10 mg Q 4 hours PRN and 2 mg IV morphine 2 mg Q 4 PRN. PT sleeping soundly no calls about pain meds & since she was sleeping I finally decided to wake her for her 2100 meds. She sais she would take some rx to tx pain even though I had to wake her to ask. She said I called at 7 PM for pain meds but had not called back but no one came. Medicated for rt upper quad pain with 10 mg oxycodone & she was emotional & anxious. medicated with 2 mg morphine with more helpful effect. PT on room air with bilatat pneumonia, rule out covid 19 results of 04/01/20 covid 19 test pending. Resp panel negative. PT recieving rocephin & azithromycin. Bilat lungs clear, diminished in bases. PT has elevated bilirubin , jaundice. PT says last ETOH use 03/24/20 was drinking 1 fifth of vodka daily. HX pancreatitis. Declined bowel care, had BM 04/01/20. Says she will use miralax in AM. Support offered for ETOH cessation. Denies drinking after release from Hospital recently.
--- NOTE | 2020-04-05 03:07 | NUR ---
PT continuessleeping soundly & appears comfortable but when woken for PRN pain meds emotional & states 8/10 pain. Had specifically asked if oxycodone 10mg was what she wanted & needed & she agreed. PT continues with dry hacking cough & has covid 19 test results pending. Planning to attend alcohol cessation treatment on discharge. Continues on lactated ringers 100 ml hr, IV antibiotics to tx bilat pneu, on room air.
[2020-04-05 05:20] LABS: BASOPHILS ABSOLUTE AUTO 0.07 K/mm3 (0.00-0.23); BASOPHILS PERCENT AUTO 1 % (0-2); EOSINOPHILS ABSOLUTE AUTO 0.25 K/mm3 (0.00-0.68); EOSINOPHILS PERCENT AUTO 2 % (0-6); Hematocrit 32.3 % (33.0-51.0); Hemoglobin 10.3 g/dL (11.5-16.0); IMMATURE GRAN ABSOLUTE AUTO 0.06 K/mm3 (0.00-0.10); IMMATURE GRAN PERCENT AUTO 1 % (0-1); LYMPHOCYTES ABSOLUTE AUTO 2.48 K/mm3 (0.84-5.20); LYMPHOCYTES PERCENT AUTO 22 % (21-46); MONOCYTES ABSOLUTE AUTO 0.68 K/mm3 (0.16-1.47); MONOCYTES PERCENT AUTO 6 % (4-13); Mean Corpuscular HGB 34.8 pg (26.0-34.0); Mean Corpuscular HGB Conc 31.9 g/dL (31.5-36.5); Mean Corpuscular Volume 109 fL (80-100); Mean Platelet Volume 9.9 fL (9.1-12.4); NEUTROPHILS ABSOLUTE AUTO 7.84 K/mm3 (1.96-9.15); NEUTROPHILS PERCENT AUTO 69 % (41-73); Platelet Count 489 K/mm3 (150-400); RDW Coefficient Variation 15.5 % (11.7-14.2); RDW Standard Deviation 62.4 fL (35.1-46.3); Red Blood Cell Count 2.96 M/mm3 (3.80-5.20); White Blood Cell Count 11.38 K/mm3 (4.00-11.30)
[2020-04-05 05:54] LABS: Alanine Aminotransfer (ALT/SGP 36 U/L (12-78); Albumin, Blood 1.9 g/dL (3.4-5.0); Albumin/Globulin Ratio 0.5 (0.8-1.8); Alk Phos 150 U/L (50-136); Anion Gap 7 mmol/L (6-16); Aspartate Aminotrans (AST/SGOT 171 U/L (12-37); Bilirubin, Total 4.7 mg/dL (0.1-1.0); Blood Urea Nitrogen 4 mg/dL (8-24); Bun/Creatinine Ratio 10.2 (12.0-20.0); CO2, Blood 27 mmol/L (21-32); Chloride, Blood 105 mmol/L (98-108); Creatinine, Blood 0.39 mg/dL (0.40-1.00); Glomerular Filtration Rate >60 (60-); Glucose, Blood 79 mg/dL (70-99); Potassium, Blood 3.5 mmol/L (3.5-5.5); Sodium, Blood 139 mmol/L (136-145); Total Protein, Blood 5.9 g/dL (6.4-8.2)
--- NOTE | 2020-04-05 17:02 | NUR ---
SHIFT SUMMARY PT RULED OUT FOR COVID19. ISOLATION FL'ED. PT UP IN ROOM OCCATIONALLY. PT ENCOURAGED TO SIT WITH LEGS ELECATED WHEN IN BED TO HELP WITH PEDAL EDEMA. LOW GRADE TEMP OF 100.0 THIS AFTERNOON. PT DENIES NEED FOR IBUPROPHEN. SBP LOW IN THE 90S. PT RECIEVING 50ML/HR OF LR TO ASSIST WITH BP. OTHER VITALS STABLE. PT OTHER ACUTE CHANGES IN ASSESSMENT AT THIS TIME. 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 WILL CONTINUE TO MONITOR UNTIL TURNOVER IS COMPLETE.
[2020-04-06 04:29] LABS: BASOPHILS ABSOLUTE AUTO 0.06 K/mm3 (0.00-0.23); BASOPHILS PERCENT AUTO 1 % (0-2); EOSINOPHILS PERCENT AUTO 2 % (0-6); Hematocrit 32.2 % (33.0-51.0); Hemoglobin 10.4 g/dL (11.5-16.0); IMMATURE GRAN ABSOLUTE AUTO 0.09 K/mm3 (0.00-0.10); IMMATURE GRAN PERCENT AUTO 1 % (0-1); LYMPHOCYTES ABSOLUTE AUTO 2.73 K/mm3 (0.84-5.20); LYMPHOCYTES PERCENT AUTO 21 % (21-46); MONOCYTES ABSOLUTE AUTO 0.71 K/mm3 (0.16-1.47); MONOCYTES PERCENT AUTO 5 % (4-13); Mean Corpuscular HGB 34.7 pg (26.0-34.0); Mean Corpuscular HGB Conc 32.3 g/dL (31.5-36.5); Mean Corpuscular Volume 107 fL (80-100); Mean Platelet Volume 9.6 fL (9.1-12.4); NEUTROPHILS ABSOLUTE AUTO 9.34 K/mm3 (1.96-9.15); NEUTROPHILS PERCENT AUTO 71 % (41-73); Platelet Count 526 K/mm3 (150-400); RDW Coefficient Variation 15.3 % (11.7-14.2); RDW Standard Deviation 61.2 fL (35.1-46.3); White Blood Cell Count 13.13 K/mm3 (4.00-11.30)
[2020-04-06 04:47] LABS: Alanine Aminotransfer (ALT/SGP 37 U/L (12-78); Albumin/Globulin Ratio 0.5 (0.8-1.8); Alk Phos 144 U/L (50-136); Anion Gap 10 mmol/L (6-16); Aspartate Aminotrans (AST/SGOT 167 U/L (12-37); Bilirubin, Total 5.4 mg/dL (0.1-1.0); Blood Urea Nitrogen 2 mg/dL (8-24); Bun/Creatinine Ratio 4.4 (12.0-20.0); CO2, Blood 25 mmol/L (21-32); Calcium, Blood 8.3 mg/dL (8.5-10.1); Chloride, Blood 102 mmol/L (98-108); Creatinine, Blood 0.46 mg/dL (0.40-1.00); Globulin, Blood 4.2 g/dL (2.2-4.0); Glomerular Filtration Rate >60 (60-); Glucose, Blood 93 mg/dL (70-99); Potassium, Blood 3.6 mmol/L (3.5-5.5); Sodium, Blood 137 mmol/L (136-145); Total Protein, Blood 6.2 g/dL (6.4-8.2)
--- NOTE | 2020-04-06 07:30 | NUR ---
PT continues with elevated bilirubin level 5.3 this AM & 6 on admission. PT continues to spike fevers daily with temp up to 101 yesterday. She is on ABX rocephin & azthromycin to tx pneumonia with CXR 09/04/20 shows atelectisis streaking. Dry hacking cough. Room air sats greater than 92% but intermittant wheeze. Anxiety related to medical conditions & continued high bilirubin & severe abd pain with mild relief with 2 mg morphine Q 4 hrs prn & 10 mg oxycodone Q 4 hours PRN. Last drink 03/24/2020 with Vodka 1 fifth daily. Has a 4 year old & 13 year old daughters. Hx of reoccuring UTI with staph UTI February 04 2020 C & S IN CHART pt UNSURE IF TX for that UTI. Motivated for recovery. Has arrangements to attend [facility] upon DC when condition stable.
[2020-04-06 16:02] LABS: Source, Urine Clean Catch
--- NOTE | 2020-04-06 16:07 | NUR ---
Routine spiritual care note: Provided supportive visit to Bev who was tearful and frustrated. She beleives she has been told "there is nothing more that can be done" and "I'll just have to live with this pain for the rest of my life." She has revised her plan post-discharge to move-in with her BF. She says she is "done with drinking." Bev responded well to encouragement and theraputic listening. Encouraged 12-step program or ETOH rehab. I will remain available.
[2020-04-06 16:12] LABS: Blood, Urine Neg (Neg); Glucose Qualitative, Urine Neg (Neg); Ketones, Urine Neg (Neg); Leukocyte Esterase, Urine 1+ (Neg); Nitrite, Urine Neg (Neg); Protein, Urine Neg (Neg); Urobilinogen, Urine 3+ (Normal)
[2020-04-06 16:20] LABS: Appearance, Urine Clear (Clear); Bilirubin, Urine 2+ (Neg); Color, Urine Amber (P-Yellow)
[2020-04-06 16:21] LABS: Bacteria Few /hpf; Red Blood Cells, Urine 0-2 /hpf (0-2); Squamous Epithelial Cells Few /hpf (Few)
--- NOTE | 2020-04-06 16:38 | NUR ---
Pt resting in bed upon arrival. Pt reports significant pain in her abdomen and states pain is worse than having pancreatitis. She reports current regimen is helping pain. Pt appears anxious and is tearful. Engaged in therapeutic listening as Pt expresses fears and concerns. Validated Pt's concerns. Pt reports plan to move in with her mother and start treatment. Pt's boyfriend will take her child while going through rehab. Continued therapeutic listening. Pt appears driven to not drink again and has established a reliable supports system. Pt reports ready to rest and take a nap. This RN ended visit. Spoke with Bedside RN Leah and discussed case. Palliative Care will F/U with Pt if called upon.
--- NOTE | 2020-04-06 16:55 | NUR ---
SHIFT SUMMARY- PT A/OX4, INDEP UP IN ROOM AND IN HALLS. PT MEDICATED T/O THE DAY WITH MORPHINE AND OXYCODONE FOR PAIN TO RUQ WITH OCCASIONAL PAIN TO LUQ. PT TEARFUL AND ANXIOUS AT TIMES AND NEEDS FREQUENT REASSURANCE. LS CLEAR/ DIMINISHED IN THE BASES WITH OCCASIONAL HARSH HACKING COUGH THAT INCREASES HER PAIN. PT ON RA, CHEST XRAY COMPLETED. TESSALON PERLES ORDERED AND GIVEN. ABD MODERATE DISTENTION. 2+ BLE EDEMA. PT REPORTS FOUL SMELLING URINE AND WANTING A UA TO BE DONE, URINE SENT TO LAB. LOW GRADE TEMP TODAY, IBUPROFEN GIVEN X1. NO OTHER ACUTE CHANGES THIS SHIFT, POSS D/C HOME TOMORROW.
[2020-04-07 04:32] LABS: BASOPHILS ABSOLUTE AUTO 0.08 K/mm3 (0.00-0.23); BASOPHILS PERCENT AUTO 1 % (0-2); EOSINOPHILS ABSOLUTE AUTO 0.29 K/mm3 (0.00-0.68); EOSINOPHILS PERCENT AUTO 2 % (0-6); Hematocrit 33.1 % (33.0-51.0); Hemoglobin 10.6 g/dL (11.5-16.0); IMMATURE GRAN ABSOLUTE AUTO 0.07 K/mm3 (0.00-0.10); IMMATURE GRAN PERCENT AUTO 1 % (0-1); LYMPHOCYTES ABSOLUTE AUTO 2.34 K/mm3 (0.84-5.20); LYMPHOCYTES PERCENT AUTO 18 % (21-46); MONOCYTES ABSOLUTE AUTO 0.86 K/mm3 (0.16-1.47); MONOCYTES PERCENT AUTO 7 % (4-13); Mean Corpuscular HGB 34.8 pg (26.0-34.0); Mean Corpuscular Volume 109 fL (80-100); Mean Platelet Volume 9.5 fL (9.1-12.4); NEUTROPHILS ABSOLUTE AUTO 9.27 K/mm3 (1.96-9.15); NEUTROPHILS PERCENT AUTO 72 % (41-73); Platelet Count 491 K/mm3 (150-400); RDW Coefficient Variation 15.2 % (11.7-14.2); RDW Standard Deviation 60.9 fL (35.1-46.3); Red Blood Cell Count 3.05 M/mm3 (3.80-5.20); White Blood Cell Count 12.91 K/mm3 (4.00-11.30)
[2020-04-07 04:51] LABS: Alanine Aminotransfer (ALT/SGP 35 U/L (12-78); Albumin/Globulin Ratio 0.4 (0.8-1.8); Alk Phos 145 U/L (50-136); Anion Gap 8 mmol/L (6-16); Aspartate Aminotrans (AST/SGOT 165 U/L (12-37); Bilirubin, Total 6.9 mg/dL (0.1-1.0); Blood Urea Nitrogen 4 mg/dL (8-24); Bun/Creatinine Ratio 9.9 (12.0-20.0); CO2, Blood 25 mmol/L (21-32); Calcium, Blood 8.1 mg/dL (8.5-10.1); Chloride, Blood 102 mmol/L (98-108); Creatinine, Blood 0.41 mg/dL (0.40-1.00); Globulin, Blood 4.6 g/dL (2.2-4.0); Glomerular Filtration Rate >60 (60-); Glucose, Blood 82 mg/dL (70-99); Potassium, Blood 3.5 mmol/L (3.5-5.5); Sodium, Blood 135 mmol/L (136-145); Total Protein, Blood 6.6 g/dL (6.4-8.2)
--- NOTE | 2020-04-07 05:16 | NUR ---
PT continues to have elevated bilirubin up to 6.[address] Lara GI consult saw PT & PT appears motivated to become more active. Ambulated multiple laps in hallway with IV pole. Deconditioned & weak. Fever resolved with increased activity to promote lung expansion. Continued to have dry hacking cough relieved by tessalon use. Less anxious, focused on DC plan to go home then to [facility]. Bowel care given with PT saying she had large light colored stool, continues with tea colored urine. PAin continues up to 8/10 with pain migrating from rt upper quad to upper epigastric. Continues on antibiotics to treat resp infection & C & S pending positive UA. PT not as emotional tonight.
[2020-04-07] MEDS ORDERED: AZIT500 PO (10:06)
[2020-04-07] MEDS ORDERED: BENZ100A PO (10:07)
[2020-04-07] MEDS ORDERED: Florastor250 MG PO (10:08)
[2020-04-07] MEDS ORDERED: CEPH500 PO (10:09)
[2020-04-07] MEDS ORDERED: TRAM50 PO (10:09)
--- NOTE | 2020-04-07 12:49 | NUR ---
PT DISCHARGED FROM THE UNIT. IV REMOVED. DISCHARGE INSTRUCTIONS REVIEWED. MEDICATIONS FAXED TO PHARMACY. FOLLOW UP APPOINTMENTS MADE. PTS FRIEND TO DRIVE HER HOME.
== END 2020-04-07 13:10 | disposition home or self-care (01) | DRG 871 ==
LOC: ER 17:43 → MEDS 21:33
PROVIDERS: Emergency Medicine; Family Medicine; Internal Medicine; Physician Assistant; ADMIT Hospitalist
PROC: 8E0ZXY6 Isolation (ICD-10-PCS; principal; 2020-04-01)
DX: A41.9 Sepsis, unspecified organism (principal); J18.9 Pneumonia, unspecified organism; K70.10 Alcoholic hepatitis without ascites; I95.9 Hypotension, unspecified; F10.20 Alcohol dependence, uncomplicated; Z20.828 Contact with and (suspected) exposure to other viral communicable diseases; E87.6 Hypokalemia; K21.9 Gastro-esophageal reflux disease without esophagitis; F17.210 Nicotine dependence, cigarettes, uncomplicated
CPT/HCPCS: 0099U; 36415; 71045; 71046; 80053; 81001; 83605; 83690; 83735; 84145; 85025; 85610; 86704; 86708; 86803; 87040; 87086; 87340; 93005; 93010; 96361; 96365; 96375; 99285-25; A9270; J0456; J0696; J1170; J2270; J2405; J2543; J3010; J3480; J7050; J7120; J7512; U0003

== ENCOUNTER 2020-09-12 18:38 | Emergency (ER) | payer OTHER ==
[~2020-09-12] VITALS: Ht 167.6 cm; Wt 65.8 kg
[~2020-09-12 18:38] MED LIST changes: +AZIT500 PO; +BENZ100A PO; +DOK100 M2 PO; +Florastor250 MG PO; +MIRALAX17 G1 PO; +TRAM50 PO
[2020-09-12 19:48] LABS: BASOPHILS ABSOLUTE AUTO 0.06 K/mm3 (0.00-0.23); BASOPHILS PERCENT AUTO 1 % (0-2); EOSINOPHILS PERCENT AUTO 2 % (0-6); Hematocrit 40.2 % (33.0-51.0); Hemoglobin 13.6 g/dL (11.5-16.0); IMMATURE GRAN ABSOLUTE AUTO 0.03 K/mm3 (0.00-0.10); IMMATURE GRAN PERCENT AUTO 1 % (0-1); LYMPHOCYTES ABSOLUTE AUTO 1.49 K/mm3 (0.84-5.20); LYMPHOCYTES PERCENT AUTO 25 % (21-46); MONOCYTES ABSOLUTE AUTO 0.51 K/mm3 (0.16-1.47); MONOCYTES PERCENT AUTO 9 % (4-13); Mean Corpuscular HGB 32.8 pg (26.0-34.0); Mean Corpuscular HGB Conc 33.8 g/dL (31.5-36.5); Mean Corpuscular Volume 97 fL (80-100); Mean Platelet Volume 9.3 fL (9.1-12.4); NEUTROPHILS ABSOLUTE AUTO 3.67 K/mm3 (1.96-9.15); NEUTROPHILS PERCENT AUTO 63 % (41-73); Platelet Count 134 K/mm3 (150-400); RDW Coefficient Variation 15.5 % (11.7-14.2); RDW Standard Deviation 55.2 fL (35.1-46.3); Red Blood Cell Count 4.15 M/mm3 (3.80-5.20); White Blood Cell Count 5.86 K/mm3 (4.00-11.30)
[2020-09-12 20:07] LABS: International Normalized Ratio 1.17; Prothrombin Time Results 12.4 Sec (9.7-11.5)
[2020-09-12 20:10] LABS: Alanine Aminotransfer (ALT/SGP 128 U/L (12-78); Albumin, Blood 4.3 g/dL (3.4-5.0); Albumin/Globulin Ratio 0.9 (0.8-1.8); Alk Phos 171 U/L (50-136); Anion Gap 10 mmol/L (6-16); Aspartate Aminotrans (AST/SGOT 365 U/L (12-37); Bilirubin, Total 3.9 mg/dL (0.1-1.0); Blood Urea Nitrogen 7 mg/dL (8-24); Bun/Creatinine Ratio 14.3 (12.0-20.0); CO2, Blood 26 mmol/L (21-32); Calcium, Blood 9.9 mg/dL (8.5-10.1); Chloride, Blood 99 mmol/L (98-108); Creatinine, Blood 0.49 mg/dL (0.40-1.00); Ethanol (Alcohol), Blood, Med <3 mg/dL; Globulin, Blood 4.6 g/dL (2.2-4.0); Glomerular Filtration Rate >60 (60-); Glucose, Blood 97 mg/dL (70-99); Potassium, Blood 3.5 mmol/L (3.5-5.5); Sodium, Blood 135 mmol/L (136-145); Total Protein, Blood 8.9 g/dL (6.4-8.2)
== END 2020-09-12 23:25 | disposition home or self-care (01) ==
LOC: ER 18:38
PROVIDERS: Physician Assistant
DX: F10.10 Alcohol abuse, uncomplicated (principal); F17.210 Nicotine dependence, cigarettes, uncomplicated; Z79.899 Other long term (current) drug therapy; Z87.442 Personal history of urinary calculi
CPT/HCPCS: 36415; 80053; 85025; 85610; 99284; G0480

== ENCOUNTER 2022-09-23 23:08 | Emergency (ER) | payer OTHER ==
[~2022-09-23] VITALS: Ht 170.2 cm; Wt 81.7 kg
[~2022-09-23 23:08] MED LIST changes: +Naltrexone HCl50 MG PO
[2022-09-23 23:31] LABS: Source, Urine Clean Catch
[2022-09-23 23:34] LABS: Bilirubin, Urine Neg (Neg); Blood, Urine 4+ (Neg); Glucose Qualitative, Urine Neg (Neg); Ketones, Urine Neg (Neg); Leukocyte Esterase, Urine 2+ (Neg); Nitrite, Urine Neg (Neg); Protein, Urine Neg (Neg); Specific Gravity, Urine 1.005 (1.003-1.022); Urobilinogen, Urine NORM (Normal)
[2022-09-23 23:41] LABS: Appearance, Urine Clear (Clear); Color, Urine Pale Yellow (P-Yellow)
[2022-09-23 23:43] LABS: Bacteria Many /hpf; Red Blood Cells, Urine 0-2 /hpf (0-2); Squamous Epithelial Cells Rare /hpf (Few)
[2022-09-23] MEDS ORDERED: CEFD300 PO (23:55)
== END 2022-09-24 00:19 | disposition home or self-care (01) ==
LOC: ER 23:08
PROVIDERS: Emergency Medicine
DX: N10 Acute pyelonephritis (principal); F17.200 Nicotine dependence, unspecified, uncomplicated
CPT/HCPCS: 81001; 87077; 87086; 87186; A9270

== ENCOUNTER 2023-03-15 11:21 | Emergency (ER) | payer OTHER ==
[~2023-03-15] VITALS: Ht 167.6 cm; Wt 79.4 kg
[~2023-03-15 11:21] MED LIST changes: +CEFD300 PO
[2023-03-15 12:47] LABS: Albumin, Blood 3.5 g/dL (3.4-5.0); Albumin/Globulin Ratio 0.7 (0.8-1.8); Bilirubin, Total 2.3 mg/dL (0.1-1.0); Bun/Creatinine Ratio 22.3 (12.0-20.0); Calcium, Blood 8.5 mg/dL (8.5-10.1); Creatinine, Blood 0.4 mg/dL (0.40-1.00); Globulin, Blood 5.2 g/dL (2.2-4.0); Potassium, Blood 4.4 mmol/L (3.5-5.5); Total Protein, Blood 8.7 g/dL (6.4-8.2)
[2023-03-15 14:39] LABS: BASOPHILS ABSOLUTE AUTO 0.03 K/mm3 (0.00-0.23); BASOPHILS PERCENT AUTO 1 % (0-2); EOSINOPHILS ABSOLUTE AUTO 0.07 K/mm3 (0.00-0.68); EOSINOPHILS PERCENT AUTO 1 % (0-6); Hematocrit 37.6 % (33.0-51.0); IMMATURE GRAN ABSOLUTE AUTO 0.01 K/mm3 (0.00-0.10); IMMATURE GRAN PERCENT AUTO 0 % (0-1); LYMPHOCYTES ABSOLUTE AUTO 0.99 K/mm3 (0.84-5.20); LYMPHOCYTES PERCENT AUTO 18 % (21-46); MONOCYTES ABSOLUTE AUTO 0.41 K/mm3 (0.16-1.47); MONOCYTES PERCENT AUTO 7 % (4-13); Mean Corpuscular HGB 31.7 pg (26.0-34.0); Mean Corpuscular HGB Conc 34.6 g/dL (31.5-36.5); Mean Corpuscular Volume 92 fL (80-100); NEUTROPHILS ABSOLUTE AUTO 4.02 K/mm3 (1.96-9.15); NEUTROPHILS PERCENT AUTO 73 % (41-73); Platelet Count 85 K/mm3 (150-400); RDW Coefficient Variation 12.5 % (11.7-14.2); RDW Standard Deviation 41.8 fL (35.1-46.3); White Blood Cell Count 5.53 K/mm3 (4.00-11.30)
[2023-03-15 15:15] LABS: Source, Urine Clean Catch
[2023-03-15 15:28] LABS: Appearance, Urine Hazy (Clear); Bilirubin, Urine Neg (Neg); Blood, Urine Neg (Neg); Color, Urine Yellow (P-Yellow); Glucose Qualitative, Urine Neg (Neg); Ketones, Urine Neg (Neg); Leukocyte Esterase, Urine Neg (Neg); Nitrite, Urine Neg (Neg); Protein, Urine 1+ (Neg); Specific Gravity, Urine 1.025 (1.003-1.022); Urobilinogen, Urine 1+ (Normal)
[2023-03-15 16:11] LABS: Bacteria Many /hpf; Mucus Mod (0-Heavy); Red Blood Cells, Urine 0-2 /hpf (0-2); Squamous Epithelial Cells Mod /hpf (Few); White Blood Cells, Urine 0-2 /hpf (0-5)
[2023-03-15] MEDS ORDERED: ONDA4ODT MM (17:18)
[2023-03-15 17:30] VITALS: BP 121/86
== END 2023-03-15 17:37 | disposition home or self-care (01) ==
LOC: ER 11:21
PROVIDERS: Physician Assistant
DX: R10.31 Right lower quadrant pain (principal); R10.32 Left lower quadrant pain; R11.0 Nausea; K70.30 Alcoholic cirrhosis of liver without ascites; K21.9 Gastro-esophageal reflux disease without esophagitis; F17.210 Nicotine dependence, cigarettes, uncomplicated; Z88.1 Allergy status to other antibiotic agents; Z88.8 Allergy status to other drugs, medicaments and biological substances; Z79.899 Other long term (current) drug therapy
CPT/HCPCS: 36415; 74177; 80053; 81001; 85025; 87086; 96374-59; 96375; 99284-25; J1170; J1885; J2405; J7030; Q9967

== ENCOUNTER → 2023-03-19 | Outpatient (CLI) | payer OTHER ==
[~2023-03-19] MED LIST changes: +ONDA4ODT MM
[2023-03-19 14:35] LABS: Candida species (DNA Probe) Negative (NEGATIVE); G. vaginalis (DNA Probe) Negative (NEGATIVE); T. vaginalis (DNA Probe) Negative (NEGATIVE)
== END | disposition home or self-care (01) ==
LOC: LAB SHORT 11:42
PROVIDERS: Advanced Practice Midwife
DX: Z11.3 Encounter for screening for infections with a predominantly sexual mode of transmission (principal); R10.2 Pelvic and perineal pain
CPT/HCPCS: 87480; 87510; 87660

== ENCOUNTER 2023-07-12 01:29 | Emergency (ER) | payer OTHER ==
[~2023-07-12] VITALS: Ht 167.6 cm; Wt 86.2 kg
[2023-07-12 02:31] LABS: BASOPHILS ABSOLUTE AUTO 0.02 K/mm3 (0.00-0.23); BASOPHILS PERCENT AUTO 0 % (0-2); EOSINOPHILS ABSOLUTE AUTO 0.07 K/mm3 (0.00-0.68); EOSINOPHILS PERCENT AUTO 1 % (0-6); Hematocrit 41.4 % (33.0-51.0); Hemoglobin 14.1 g/dL (11.5-16.0); IMMATURE GRAN ABSOLUTE AUTO 0.02 K/mm3 (0.00-0.10); IMMATURE GRAN PERCENT AUTO 0 % (0-1); LYMPHOCYTES ABSOLUTE AUTO 0.87 K/mm3 (0.84-5.20); LYMPHOCYTES PERCENT AUTO 13 % (21-46); MONOCYTES ABSOLUTE AUTO 0.42 K/mm3 (0.16-1.47); MONOCYTES PERCENT AUTO 6 % (4-13); Mean Corpuscular HGB 30.9 pg (26.0-34.0); Mean Corpuscular HGB Conc 34.1 g/dL (31.5-36.5); Mean Corpuscular Volume 91 fL (80-100); Mean Platelet Volume 9.6 fL (9.1-12.4); NEUTROPHILS ABSOLUTE AUTO 5.55 K/mm3 (1.96-9.15); NEUTROPHILS PERCENT AUTO 80 % (41-73); Platelet Count 88 K/mm3 (150-400); RDW Coefficient Variation 12.9 % (11.7-14.2); RDW Standard Deviation 43.3 fL (35.1-46.3); Red Blood Cell Count 4.56 M/mm3 (3.80-5.20); White Blood Cell Count 6.95 K/mm3 (4.00-11.30)
[2023-07-12 03:15] VITALS: BP 117/72
[2023-07-12 03:36] LABS: Albumin, Blood 3.5 g/dL (3.4-5.0); Albumin/Globulin Ratio 0.7 (0.8-1.8); Bilirubin, Total 1.2 mg/dL (0.1-1.0); Bun/Creatinine Ratio 10.5 (12.0-20.0); Calcium, Blood 8.7 mg/dL (8.5-10.1); Creatinine, Blood 0.57 mg/dL (0.40-1.00); Globulin, Blood 4.7 g/dL (2.2-4.0); Potassium, Blood 3.7 mmol/L (3.5-5.5); Total Protein, Blood 8.2 g/dL (6.4-8.2)
[2023-07-12] MEDS ORDERED: LOPE2C PO (04:17)
[2023-07-12] MEDS ORDERED: ONDA4ODT MM (04:17)
[2023-07-12] MEDS ORDERED: DICY20 PO (04:29)
== END 2023-07-12 04:30 | disposition home or self-care (01) ==
LOC: ER 01:29
PROVIDERS: Emergency Medicine
DX: R10.84 Generalized abdominal pain (principal); R11.2 Nausea with vomiting, unspecified; R19.7 Diarrhea, unspecified; F17.210 Nicotine dependence, cigarettes, uncomplicated; Z88.1 Allergy status to other antibiotic agents; Z88.8 Allergy status to other drugs, medicaments and biological substances
CPT/HCPCS: 80053; 83690; 84703; 85025; 86850; 86900; 86901; 93005; 93010; 96365; 96367; 96375; 96376; 99284-25; A9270; C9113; J0696; J2354; J2405; J7050

== ENCOUNTER → 2025-03-01 | Outpatient (CLI) | payer BC, OTHER ==
[~2025-03-01] MED LIST changes: +DICY20 PO; +LOPE2C PO
== END ==
LOC: LAB 15:24 → LAB SHORT 15:24
DX: O09.93 Supervision of high risk pregnancy, unspecified, third trimester (principal); O09.523 Supervision of elderly multigravida, third trimester; O24.419 Gestational diabetes mellitus in pregnancy, unspecified control; O99.213 Obesity complicating pregnancy, third trimester
CPT/HCPCS: 87081; 87150

== ENCOUNTER 2025-03-19 07:42 | Inpatient (IN) | payer BC, OTHER ==
[2025-03-19] VITALS (32 sets, daily range): BP systolic 105–143; BP diastolic 56–83
[~2025-03-19] VITALS: Ht 167.6 cm; Wt 97.7 kg
[2025-03-19] MEDS ORDERED: Ondansetron HCl 2 MG / ML 2ML Vial IV PRN (08:15)
[2025-03-19] MEDS ORDERED: Methylergonovine Maleate 0.2MG / ML 1ML Amp IM PRN ×2 (08:15→20:25)
[2025-03-19] MEDS ORDERED: Lactated Ringer's 1,000 ML IV PRN (08:15)
[2025-03-19] MEDS ORDERED: Acetaminophen 500 MG Tab PO PRN (08:15)
[2025-03-19] MEDS ORDERED: Misoprostol 200 MCG Tab BC PRN (08:15)
[2025-03-19] MEDS ORDERED: Carboprost Tromethamine 250 MCG/ML 1ML Amp IM PRN ×2 (08:15→20:20)
[2025-03-19] MEDS ORDERED: Oxytocin 10 Unit / ML Vial IM PRN (08:15)
[2025-03-19] MEDS ORDERED: Misoprostol 200 MCG Tab PR PRN ×2 (08:15→20:25)
[2025-03-19] MEDS ORDERED: OXYTOCIN/RINGER'S LACTATE 500 ML IV PRN (08:15)
[2025-03-19] MEDS ORDERED: Tranexamic Acid 100 ML IV SCH (08:15)
[2025-03-19] MEDS ORDERED: ePHEDrine Sulfate 50 MG/ML 1ML Injection XX PRN (08:20)
[2025-03-19] MEDS ORDERED: FentaNYL 2mcg/ml-Bup 0.1% Epd 250 ML EPI PRN (08:20)
[2025-03-19] MEDS ORDERED: Lactated Ringer's 1,000 ML IV SCH ×3 (08:20→20:25)
[2025-03-19] MEDS ORDERED: Calcium Carbonate 500 MG Tab Chew PO SCH (08:20)
[2025-03-19 08:31] LABS: BASOPHILS ABSOLUTE AUTO 0.03 K/mm3 (0.00-0.23); BASOPHILS PERCENT AUTO 0 % (0-2); EOSINOPHILS ABSOLUTE AUTO 0.07 K/mm3 (0.00-0.68); EOSINOPHILS PERCENT AUTO 1 % (0-6); Hematocrit 34.4 % (33.0-51.0); Hemoglobin 11.6 g/dL (11.5-16.0); IMMATURE GRAN ABSOLUTE AUTO 0.05 K/mm3 (0.00-0.10); IMMATURE GRAN PERCENT AUTO 1 % (0-1); LYMPHOCYTES ABSOLUTE AUTO 1.96 K/mm3 (0.84-5.20); LYMPHOCYTES PERCENT AUTO 22 % (21-46); MONOCYTES ABSOLUTE AUTO 0.38 K/mm3 (0.16-1.47); MONOCYTES PERCENT AUTO 4 % (4-13); Mean Corpuscular HGB 30.3 pg (26.0-34.0); Mean Corpuscular HGB Conc 33.7 g/dL (31.5-36.5); Mean Corpuscular Volume 90 fL (80-100); Mean Platelet Volume 10.3 fL (9.1-12.4); NEUTROPHILS ABSOLUTE AUTO 6.55 K/mm3 (1.96-9.15); NEUTROPHILS PERCENT AUTO 72 % (41-73); Platelet Count 160 K/mm3 (150-400); RDW Coefficient Variation 12.5 % (11.7-14.2); RDW Standard Deviation 40.8 fL (35.1-46.3); Red Blood Cell Count 3.83 M/mm3 (3.80-5.20); White Blood Cell Count 9.04 K/mm3 (4.00-11.30)
[2025-03-19] MEDS ORDERED: BENADRYL25 MG PO (09:46)
[2025-03-19] MEDS ORDERED: Ketorolac Tromethamine 30mg Vial IV ONE (19:05)
[2025-03-19] MEDS ORDERED: Witch Hazel/Glycerin PADS TOP PRN (20:15)
[2025-03-19] MEDS ORDERED: Docusate Sodium 100 MG Cap PO PRN (20:15)
[2025-03-19] MEDS ORDERED: Ibuprofen 400 MG Tab PO PRN (20:15)
[2025-03-19] MEDS ORDERED: OXYTOCIN/RINGER'S LACTATE 500 ML IV SCH (20:20)
[2025-03-19] MEDS ORDERED: Rho(D) Immune Globulin 300 MCG / SYR IM ONE (20:20)
[2025-03-19] MEDS ORDERED: Ketorolac Tromethamine 30mg Vial IV PRN (20:20)
[2025-03-19] MEDS ORDERED: Lanolin Cream TOP PRN (20:20)
[2025-03-19] MEDS ORDERED: Benzocaine Topical Anesthetic Spray 60GM TOP PRN (20:20)
[2025-03-19] MEDS ORDERED: OxyCODONE HCL 5 MG TAB PO PRN (20:25)
[2025-03-19] MEDS ORDERED: Cyclobenzaprine HCl 10 MG Tab PO ONE (21:00)
[2025-03-19] MEDS ORDERED: Cyclobenzaprine HCl 10 MG Tab PO PRN (21:00)
[2025-03-20] VITALS (7 sets, daily range): BP systolic 99–143; BP diastolic 51–87
[2025-03-20] MEDS ORDERED: Prenatal Vit/FE Fumarate/FA 1 Tab PO SCH (09:00)
[2025-03-20] MEDS ORDERED: Polyethylene Glycol 3350 17 gm PO PRN (10:35)
[2025-03-20] MEDS ORDERED: Docusate Sodium 100 MG Cap PO SCH (11:00)
[2025-03-21 00:18] VITALS: BP 126/59
[2025-03-21 05:28] VITALS: BP 123/58
[2025-03-21 07:52] VITALS: BP 98/57
[2025-03-21 07:55] VITALS: BP 112/64
[2025-03-21 11:40] VITALS: BP 114/71
== END 2025-03-21 12:25 | disposition home or self-care (01) | DRG 807 ==
LOC: OBS 07:42 → BC 07:45 → OBS 07:54 → BC 07:55
PROVIDERS: ADMIT Obstetrics & Gynecology
PROC: 10E0XZZ Delivery of Products of Conception, External Approach (ICD-10-PCS; principal; 2025-03-19)
PROC: 0KQM0ZZ Repair Perineum Muscle, Open Approach (ICD-10-PCS; 2025-03-19)
PROC: 00HU33Z Insertion of Infusion Device into Spinal Canal, Percutaneous Approach (ICD-10-PCS; 2025-03-19)
PROC: 3E0R3BZ Introduction of Anesthetic Agent into Spinal Canal, Percutaneous Approach (ICD-10-PCS; 2025-03-19)
DX: O24.424 Gestational diabetes mellitus in childbirth, insulin controlled (principal); Z37.0 Single live birth; Z3A.38 38 weeks gestation of pregnancy; O99.214 Obesity complicating childbirth; O99.62 Diseases of the digestive system complicating childbirth; K76.0 Fatty (change of) liver, not elsewhere classified; O99.314 Alcohol use complicating childbirth; F10.20 Alcohol dependence, uncomplicated; O99.344 Other mental disorders complicating childbirth; F41.9 Anxiety disorder, unspecified; O76 Abnormality in fetal heart rate and rhythm complicating labor and delivery; O70.1 Second degree perineal laceration during delivery; Z88.8 Allergy status to other drugs, medicaments and biological substances; Z88.1 Allergy status to other antibiotic agents; Z79.4 Long term (current) use of insulin
CPT/HCPCS: 36415; 36416; 51702; 82947; 85025; 86850; 86900; 86901; A9270; J1885; J2405; J7120